=== PATIENT | female | born 1940 | race Caucasian/White ===

== ENCOUNTER 2017-05-24 13:41 | Emergency (ER) | payer OTHER, MEDICARE ==
--- NOTE | 2017-05-24 14:36 | EDPHY ---
H & P Stated Complaint: dizziness intermittant, finger lac @0100am today Time Seen by Provider: 05/24/17 14:35 - Personal History Current Tetanus Diphtheria and Acellular Pertussis (TDAP): Unsure - Medical/Surgical History Hx Asthma: No Hx Chronic Respiratory Disease: No Hx Diabetes: No Hx Cardiac Disease: No Hx Renal Disease: Yes Hx Cirrhosis: No Hx Alcoholism: No Hx HIV/AIDS: No Hx Splenectomy or Spleen Trauma: No Other PMH: htn, kidney surgey- congenital, partial right nephrectomy, stage 3 kidney disease - Social History Smoking Status: Never smoked Constitutional: Initial Vital Signs Temperature (C) 36.6 C 05/24/17 13:55 Heart Rate 86 05/24/17 13:55 Respiratory Rate 20 05/24/17 13:55 Blood Pressure 165/100 H 05/24/17 13:55 O2 Sat (%) 93 05/24/17 13:55 O2 Delivery Mode Room Air Allergies/Adverse Reactions: Sulfa (Sulfonamide Antibiotics) Allergy (Verified 05/24/17 13:55) Home Medications: Medication Instructions Recorded Losartan Potassium 05/24/17 Medical Decision Making - Diagnostics Imaging Results: Imaging Impressions Brain MRI 05/24/17 14:46 Impression: 1. Features consistent with cerebral amyloid angiopathy. 2. Moderately advanced cerebral cortical atrophy with extensive chronic microvascular ischemic gliosis and areas of old lacunar infarction. There is no evidence of an acute or subacute infarction. Findings were discussed with Beck Sutton MD at 17:07, on 05/24/2017. ED Course/Re-evaluation: CHIEF COMPLAINT: Dizziness and left finger lack HISTORY OF PRESENT ILLNESS: 76-year-old female who endorses the fact that she has some sort of brain disorder but she is not sure of the specific symptoms she should have. She has had progressive dizziness over the last several days culminating in a fall last night which broke the toilet and flooded the bathroom and her house and she cut her left index finger. She states that the dizziness seems to wax and wane but is somewhat progressive over the last couple days. She also endorses the fact that she has been urinating more than usual but does not feel like she has urinary tract infection because she has had that before. She also states she has stage 3 kidney disease but has never had any symptoms associated with it. She denies any chest pain chest pressure. She denies any headache. She denies any recent trauma. She states that she may have hydrocephalus. She denies nausea vomiting REVIEW OF SYSTEMS: A 10 point review of systems was performed and is negative with the exception of the elements mentioned in the history of present illness. PHYSICAL EXAM: HR, BP, O2 Sat, RR. Temp noted General Appearance: Alert, well hydrated, appropriate, and non-toxic appearing. Head: Atraumatic without scalp tenderness or obvious injury Eyes: Pupils equal, round, reactive to light and accommodation, EOMI, no trauma , no injection. Ears: Clear bilaterally, no perforation, normal landmarks Nose: Atraumatic, no rhinorrhea, clear. Throat: There is no erythema or exudates, no lesions, normal tonsils, mucus membranes moist. Neck: Supple, 2+ carotid upstroke, nontender, no lymphadenopathy. Respiratory: No retractions, no distress, no wheezes, and no accessory muscle use. Lungs are clear to auscultation bilaterally. Cardiovascular: Regular rate and rhythm, no murmurs, rubs, or gallops. Bilateral carotid, radial, dorsalis pedis, and posterior tibial pulses intact. Good capillary refill all extremities. Gastrointestinal: Abdomen is soft, nontender, non-distended, no masses, no rebound, no guarding, no peritoneal signs. Musculoskeletal: Normal active ROM of all extremities, atraumatic. Neurological: Alert, appropriate, and interactive. The patient has normal DTRs and non-focal cranial nerves, motor, sensory, and abnormal cerebellar exam. The patient is somewhat slow cognitively but states that that is normal for her. The only real symptom she feels subjectively is significant dizziness which is better at rest and worsening with movement. Skin: 2 cm laceration to the volar aspect of the left pointer finger. No FDS or FDP involvement. No rashes, good turgor, no nodules on palpation. Past medical history: Possibly hydrocephalus, she has been ruled out for MS, possibly latent Lyme disease Past surgical history: Noncontributory Family history: Noncontributory Social history: Single, unemployed, does not abuse tobacco drugs or alcohol DIAGNOSTICS/PROCEDURES/CRITICAL CARE TIME: Study: MRI of the: brain Indication: progressive dizziness Results: MRI scan of the brain was obtained. The results of the study are some progression of her amyloid disease but no acute findings compared to 2013 brain MRI. The study was read by the radiologist, Dr. Chauncey Salcido. I viewed the images myself on the PACS system. DIFFERENTIAL DIAGNOSIS: The differential diagnosis for the patient's dizziness included but was not limited to peripheral and central causes of vertigo, orthostatic causes including dehydration, cardiogenic and neurogenic causes, and blood loss. MEDICAL DECISION MAKING: This patient is only significant abnormal neurologic finding which is acute is balance gait abnormality and dizziness. The dizziness does seem to extinguish. This patient has nystagmus horizontally. She states that she thinks she has had that in the past also. She sees Dr. Rick Harley from Neurology and states she had an MRI about 4 years ago which did not show any MS or other findings. She thinks that dizziness can sometimes go along with what of her brain disorder she has but she is unsure. Megan Jimenez will address the left volar pointer finger. The finger is very superficial. It does not require suturing. We have cleaned appropriately and applied bacitracin and dry sterile dressing. This patient's dizziness is most likely secondary to her ongoing amyloid progressive cerebral disease. We will have her follow up with Dr. Rick Harley from Neurology. There are no obvious electrolyte abnormalities or infections to cause her dizziness. Patient advised to follow-up with Dr. Harley. She was offered admission but would like to go home. She feels she is safe to go home and I agree to this course of action. - Data Points Laboratory Results: Laboratory Results 05/24/17 15:08 05/24/17 15:08 05/24/17 05/24/17 05/24/17 15:55 15:08 15:08 WBC 5.20 10^3/uL 10^3/uL (3.80-9.50) RBC 5.26 10^6/uL 10^6/uL (4.18-5.33) Hgb 16.5 g/dL H g/dL (12.6-16.3) Hct 47.5 % H % (38.0-47.0) MCV 90.3 fL fL (81.5-99.8) MCH 31.4 pg pg (27.9-34.1) MCHC 34.7 g/dL g/dL (32.4-36.7) RDW 12.5 % % (11.5-15.2) Plt Count 323 10^3/uL 10^3/uL (150-400) MPV 9.7 fL fL (8.7-11.7) Neut % (Auto) 64.2 % % (39.3-74.2) Lymph % (Auto) 24.6 % % (15.0-45.0) [place] % (Auto) 9.4 % % (4.5-13.0) Eos % (Auto) 0.8 % % (0.6-7.6) Baso % (Auto) 0.8 % % (0.3-1.7) Nucleat RBC Rel Count 0.0 % % (0.0-0.2) Absolute Neuts (auto) 3.34 10^3/uL 10^3/uL (1.70-6.50) Absolute Lymphs (auto) 1.28 10^3/uL 10^3/uL (1.00-3.00) Absolute Monos (auto) 0.49 10^3/uL 10^3/uL (0.30-0.80) Absolute Eos (auto) 0.04 10^3/uL 10^3/uL (0.03-0.40) Absolute Basos (auto) 0.04 10^3/uL 10^3/uL (0.02-0.10) Absolute Nucleated RBC 0.00 10^3/uL 10^3/uL (0-0.01) Immature Gran % 0.2 % % (0.0-1.1) Immature Gran # 0.01 10^3/uL 10^3/uL (0.00-0.10) Sodium 142 mEq/L mEq/L (134-144) Potassium 4.3 mEq/L mEq/L (3.5-5.2) Chloride 103 mEq/L mEq/L (97-110) Carbon Dioxide 25 mEq/l mEq/l (22-31) Anion Gap 14 mEq/L mEq/L (8-16) BUN 21 mg/dL mg/dL (7-23) Creatinine 1.1 mg/dL H mg/dL (0.6-1.0) Estimated GFR 48 Glucose 93 mg/dL mg/dL (70-100) Calcium 11.3 mg/dL H mg/dL (8.5-10.4) Phosphorus 4.0 mg/dL mg/dL (2.5-4.5) Magnesium 2.5 mg/dL H mg/dL (1.6-2.3) Urine Color YELLOW Urine Appearance CLEAR Urine pH 5.0 (5.0-7.5) Ur Specific [place] 1.013 (1.002-1.030) Urine Protein NEGATIVE (NEGATIVE) Urine Ketones NEGATIVE (NEGATIVE) Urine Blood 1+ H (NEGATIVE) Urine Nitrate NEGATIVE (NEGATIVE) Urine Bilirubin NEGATIVE (NEGATIVE) Urine Urobilinogen NEGATIVE EU EU (0.2-1.0) Ur Leukocyte Esterase NEGATIVE (NEGATIVE) Urine RBC 5-10 /hpf H /hpf (0-3) Urine WBC 1-3 /hpf /hpf (0-3) Ur Epithelial Cells TRACE /lpf /lpf (NONE-1+) Urine Mucus TRACE /lpf /lpf (NONE-1+) Urine Glucose NEGATIVE (NEGATIVE) Departure - Departure Disposition: Home, Routine, Self-Care Clinical Impression: Dizziness Condition: Good Instructions: Dizziness (ED) Additional Instructions: 1. Follow-up with Dr. Harley for unimproved symptoms in 1-2 days. 2. Return to the ED for worsening of condition. Referrals: Robert Wolf [Primary Care Provider] - As per Instructions Rick Harley MD [Medical Doctor] - As per Instructions
[2017-05-24 15:20] LABS: % IMMATURE GRANULYOCYTES 0.2 % (0.0-1.1); ABSOLUTE IMMATURE GRANULOCYTES 0.01 10^3/uL (0.00-0.10); ADD DIFF? NO; ADD MORPH? NO; ADD SCAN? NO; ATYPICAL LYMPHOCYTE FLAG 0 (0-99); FRAGMENT RBC FLAG 0 (0-99); HEMATOCRIT 47.5 % (38.0-47.0); HEMOGLOBIN 16.5 g/dL (12.6-16.3); LEFT SHIFT FLG 0 (0-99); LIPEMIA HEMOLYSIS FLAG 90 (0-99); MEAN CELL HEMOGLOBIN 31.4 pg (27.9-34.1); MEAN CELL HEMOGLOBIN CONCENTR. 34.7 g/dL (32.4-36.7); MEAN CELL VOLUME 90.3 fL (81.5-99.8); MEAN PLATELET VOLUME 9.7 fL (8.7-11.7); PLATELET CLUMPS FLAG 0 (0-99); PLATELET COUNT 323 10^3/uL (150-400); RED BLOOD CELL COUNT 5.26 10^6/uL (4.18-5.33); RED CELL DISTRIBUTION WIDTH 12.5 % (11.5-15.2)
--- NOTE | 2017-05-24 15:21 | CPEKG ---
Heart Rate: 61 RR Interval: 984 P-R Interval: 240 QRSD Interval: 92 QT Interval: 416 QTC Interval: 419 P [place]: 41 QRS [place]: 23 T Wave [place]: 29 EKG Severity - ABNORMAL ECG - EKG Impression: SINUS RHYTHM EKG Impression: FIRST DEGREE AV BLOCK EKG Impression: CONSIDER ANTERIOR INFARCT Electronically Signed By: Beck Sutton 24-May-2017 21:55:13
[2017-05-24 15:48] LABS: ANION GAP 14 mEq/L (8-16); CALCIUM 11.3 mg/dL (8.5-10.4); CARBON DIOXIDE 25 mEq/l (22-31); CHLORIDE 103 mEq/L (97-110); CREATININE 1.1 mg/dL (0.6-1.0); GLOMERULAR FILTRATION RATE 48; GLUCOSE 93 mg/dL (70-100); MAGNESIUM 2.5 mg/dL (1.6-2.3); POTASSIUM 4.3 mEq/L (3.5-5.2); SODIUM 142 mEq/L (134-144)
[2017-05-24 16:06] LABS: COLOR YELLOW; LEUKOCYTE ESTERASE,URINE NEGATIVE (NEGATIVE); NITRITE,URINE NEGATIVE (NEGATIVE)
[2017-05-24 16:09] LABS: MUCUS TRACE /lpf (NONE-1+)
[2017-05-24 18:22] VITALS: BP 183/105; PULSE 77; RESP 18; TEMP 97.7; O2SAT 97
== END 2017-05-24 18:42 | disposition home or self-care (01) ==
DX: R42 Dizziness and giddiness (principal); I12.9 Hypertensive chronic kidney disease with stage 1 through stage 4 chronic kidney disease, or unspecified chronic kidney disease; N18.3 Chronic kidney disease, stage 3 (moderate); W01.118A Fall on same level from slipping, tripping and stumbling with subsequent striking against other sharp object, initial encounter; Y92.009 Unspecified place in unspecified non-institutional (private) residence as the place of occurrence of the external cause

== ENCOUNTER → 2017-06-26 | Outpatient (CLI) | payer OTHER, MEDICARE ==
--- NOTE | 2017-06-27 07:45 | CPEEG ---
[f rep st] ELECTROENCEPHALOGRAM FOUR HOUR VIDEO EEG DATE OF STUDY: 06/26/2017 INTERPRETATION: This 4-hour video EEG recording is essentially normal. There were no definite epile ptogenic abnormalities present in the awake or sleep recordings. The patient did not have any clinic al events during the video EEG monitoring session. REPORT: This 4-hour video EEG contains 9-10 Hz alpha activity over the posterior head regions. Ther e was no abnormal activation at rest, during photic stimulation or hyperventilation. The patient bec toni drowsy and fell asleep during the study. During drowsiness and light sleep, there was occasional sharply contoured wave forms of uncertain clinical significance over the left temporal head regions. There was no definite abnormal activation during drowsiness, sleep, or during times of arousal. Th e patient did not have any clinical events during the video EEG monitoring session. /[id number]/MODL
== END ==
LOC: FCPNEURO 07:47
PROVIDERS: ATTEND Psychiatry & Neurology Neurology
DX: E85.4 Organ-limited amyloidosis (principal); I86.0 Sublingual varices; I67.3 Progressive vascular leukoencephalopathy

== ENCOUNTER 2017-06-30 14:35 | Inpatient (IN) | payer OTHER, MEDICARE ==
--- NOTE | 2017-06-30 14:40 | EDPHY ---
H & P Constitutional: Initial Vital Signs Temperature (C) 36.8 C 06/30/17 14:48 Heart Rate 85 06/30/17 14:48 Respiratory Rate 16 06/30/17 14:48 Blood Pressure 172/104 H 06/30/17 14:48 O2 Sat (%) 99 06/30/17 14:48 O2 Delivery Mode Room Air Allergies/Adverse Reactions: Sulfa (Sulfonamide Antibiotics) Allergy (Verified 05/24/17 13:55) Home Medications: Medication Instructions Recorded Herbals/Supplements -Info Only 1 ea PO DAILY 06/30/17 Losartan Potassium [Cozaar] 100 mg PO HS 06/30/17 Medical Decision Making - Diagnostics Imaging Results: Imaging Impressions Head CT 06/30/17 14:39 Impression: 1. No acute intracranial hemorrhage or evidence of acute cortical ischemia. 2. Atrophy and white matter disease similar to May 2017. Findings discussed with Emergency Department physician, Beck Sutton MD, on 06/30/2017, 14:50. Head CTA 06/30/17 14:39 Impression: 1. Possible occlusion of a left M3 branch in the middle cerebral artery. If clinical suspicion warrants, consider MRI. 2. Subtle contour irregularity of the middle cerebral arteries, most likely related to artifact or less likely vasculitis. 3. Additional findings as above. Stenoses are calculated using [place] Symptomatic Carotid Endarterectomy Trial (NASCET) criteria. Findings discussed with Beck Sutton MD, on 06/30/2017 at 15:49. Neck CTA 06/30/17 14:39 Impression: 1. Possible occlusion of a left M3 branch in the middle cerebral artery. If clinical suspicion warrants, consider MRI. 2. Subtle contour irregularity of the middle cerebral arteries, most likely related to artifact or less likely vasculitis. 3. Additional findings as above. Stenoses are calculated using [place] Symptomatic Carotid Endarterectomy Trial (NASCET) criteria. Findings discussed with Beck Sutton MD, on 06/30/2017 at 15:49. Imaging: Discussed imaging studies w/ call center dispatcher Radiologist, I viewed and interpreted images myself ED Course/Re-evaluation: CHIEF COMPLAINT: Stroke Alert, right-sided weakness HISTORY OF PRESENT ILLNESS: The patient is a 76 y/o female arriving via EMS as a Stroke Alert due to acute onset right-sided weakness at 13:40, 1 hour ago, that has since improved; however, she continues to have persisting cognitive difficulty and feels like she is drifting to the left. Her prior records show a history of cerebral amyloidosis and old lacunar infarct seen on brain MRI from 05/24/17. She is alert and oriented, but continues to have right leg weakness during initial assessment. No anticoagulant use. REVIEW OF SYSTEMS: A 10 point review of systems was performed and is negative with the exception of the elements mentioned in the history of present illness. PHYSICAL EXAM: HR, BP, O2 Sat, RR. Temp noted General Appearance: Alert, well hydrated, appropriate, and non-toxic appearing. Head: Atraumatic without scalp tenderness or obvious injury Eyes: Pupils equal, round, reactive to light and accommodation, EOMI, no trauma , no injection. Ears: Clear bilaterally, no perforation, normal landmarks Nose: Atraumatic, no rhinorrhea, clear. Throat: Mucus membranes moist. Neck: Supple Respiratory: No retractions, no distress, no wheezes, and no accessory muscle use. Lungs are clear to auscultation bilaterally. Cardiovascular: Regular rate and rhythm, no murmurs, rubs, or gallops. Good capillary refill all extremities. Gastrointestinal: Abdomen is soft, non-tender, non-distended, no masses, no rebound, no guarding, no peritoneal signs. Musculoskeletal: Normal active ROM of all extremities, atraumatic. Neurological: Alert, appropriate, and interactive. The patient has non-focal cranial nerves, motor, sensory, and cerebellar exam with exception of right leg weakness. Skin: No rashes, good turgor, no nodules on palpation. PAST MEDICAL HISTORY: Hypertension, stage 3 kidney disease, cerebral amyloidosis PAST SURGICAL HISTORY: Partial nephrectomy SOCIAL HISTORY: Nonsmoker Prior medical records reviewed including ED visit 05/24/17 for dizziness. Brain MRI showed amyloid deposits and old lacunar infarct. DIAGNOSTICS/PROCEDURES/CRITICAL CARE TIME: Head CT: No acute ischemia. Similar atrophy to 05/24/17. The 12 lead EKG was interpreted by myself. Sinus rhythm with 1st degree AV block. See hard copy and/or "tracemaster" electronic copy for interpretation. Head and neck CTA: left M3 branch of MCA occlusion, amyloid deposits as prior MRI. Critical care time spent by me, Dr. Sutton, exclusively with this patient was 45 minutes, exclusive of PA time and exclusive of procedures. The organ system at risk was brain. Time spent in urgent neurologic assessment, serial assessments of patient, discussion with patient and family, consideration of interventions, review of CT scans, and consultation with neurosurgery and trauma surgery. DIFFERENTIAL DIAGNOSIS: The differential diagnosis for the patient's neurologic deficits included but was not limited to peripheral causes, central causes including CVA, TIA, electrolyte abnormalities and dehydration, cardiogenic causes, atypical causes like migraine syndrome. MEDICAL DECISION MAKIN: Met EMS upon arrival and took report. This is a 76 y/o female with history of recently diagnosed cerebral amyloidosis who presents with a 1-hour history of acute onset right-sided weakness and cognitive difficulties that have since improved. She continues to have right leg weakness on exam and feels like she is listing to the left. Prehospital BGL 114. She is also hypertensive above 170 systolic. Plan for standard stroke work-up including IV, emergent CT, labs, EKG. 1438: Patient sent directly to CT. 1450: Consulted with Dr. Moore, [place] neurologist. Since her symptoms have resolved, there is no indication for TPA currently. 1550: CTAs show occluded left M3 branch of MCA. May be too small for surgical intervention. Neurology paged for consult. 1610: Consulted with Dr. Moore again. He does not recommend surgical intervention as patient's symptoms have completely resolved at this point and this is a small vessel. TPA not indicated due to amyloid deposits leading to increased risk of bleeding. Spoke with hospitalist service. Dr. Engle accepts admission. BP is 199/110 - 20mg IV Labetalol ordered. 1640: Reassessed patient. She has a completely normal neurologic exam at this time. She states she has an ENT appointment scheduled for tomorrow with Dr. Copeland to follow up on her dizziness from May. Hospitalist updated. - Data Points Laboratory Results: Laboratory Results 06/30/17 14:50 06/30/17 14:50 06/30/17 06/30/17 06/30/17 14:54 14:50 14:50 WBC RBC Hgb POC Hgb 15.0 gm/dL gm/dL (12.6-16.3) Hct POC Hct 44 % % (38-47) MCV MCH MCHC RDW Plt Count MPV Neut % (Auto) Lymph % (Auto) [place] % (Auto) Eos % (Auto) Baso % (Auto) Nucleat RBC Rel Count Absolute Neuts (auto) Absolute Lymphs (auto) Absolute Monos (auto) Absolute Eos (auto) Absolute Basos (auto) Absolute Nucleated RBC Immature Gran % Immature Gran # PT 13.1 SEC SEC (12.0-15.0) INR 0.97 (0.83-1.16) APTT 30.3 SEC SEC (23.0-38.0) POC Sodium 142 mEq/L mEq/L (134-144) Sodium 142 mEq/L mEq/L (134-144) POC Potassium 4.2 mEq/L mEq/L (3.3-5.0) Potassium 4.5 mEq/L mEq/L (3.5-5.2) POC Chloride 106 mEq/L mEq/L (97-110) Chloride 107 mEq/L mEq/L (97-110) Carbon Dioxide 24 mEq/l mEq/l (22-31) Anion Gap 11 mEq/L mEq/L (8-16) POC BUN 29 mg/dL H mg/dL (7-23) BUN 26 mg/dL H mg/dL (7-23) Creatinine 1.2 mg/dL H mg/dL (0.6-1.0) POC Creatinine 1.2 mg/dL H mg/dL (0.6-1.0) Estimated GFR 44 Glucose 101 mg/dL H mg/dL (70-100) POC Glucose 97 mg/dL mg/dL (70-100) Calcium 10.7 mg/dL H mg/dL (8.5-10.4) Phosphorus 3.7 mg/dL mg/dL (2.5-4.5) Troponin I < 0.012 ng/mL ng/mL (0.000-0.034) 06/30/17 14:50 WBC 6.02 10^3/uL 10^3/uL (3.80-9.50) RBC 4.92 10^6/uL 10^6/uL (4.18-5.33) Hgb 15.4 g/dL g/dL (12.6-16.3) POC Hgb Hct 44.7 % % (38.0-47.0) POC Hct MCV 90.9 fL fL (81.5-99.8) MCH 31.3 pg pg (27.9-34.1) MCHC 34.5 g/dL g/dL (32.4-36.7) RDW 12.4 % % (11.5-15.2) Plt Count 298 10^3/uL 10^3/uL (150-400) MPV 9.2 fL fL (8.7-11.7) Neut % (Auto) 66.0 % % (39.3-74.2) Lymph % (Auto) 20.6 % % (15.0-45.0) [place] % (Auto) 11.3 % % (4.5-13.0) Eos % (Auto) 1.2 % % (0.6-7.6) Baso % (Auto) 0.7 % % (0.3-1.7) Nucleat RBC Rel Count 0.0 % % (0.0-0.2) Absolute Neuts (auto) 3.98 10^3/uL 10^3/uL (1.70-6.50) Absolute Lymphs (auto) 1.24 10^3/uL 10^3/uL (1.00-3.00) Absolute Monos (auto) 0.68 10^3/uL 10^3/uL (0.30-0.80) Absolute Eos (auto) 0.07 10^3/uL 10^3/uL (0.03-0.40) Absolute Basos (auto) 0.04 10^3/uL 10^3/uL (0.02-0.10) Absolute Nucleated RBC 0.00 10^3/uL 10^3/uL (0-0.01) Immature Gran % 0.2 % % (0.0-1.1) Immature Gran # 0.01 10^3/uL 10^3/uL (0.00-0.10) PT INR APTT POC Sodium Sodium POC Potassium Potassium POC Chloride Chloride Carbon Dioxide Anion Gap POC BUN BUN Creatinine POC Creatinine Estimated GFR Glucose POC Glucose Calcium Phosphorus Troponin I Medications Given: Discontinued Medications Labetalol HCl (Trandate Injection) 20 mg IVP EDNOW ONE Stop: 06/30/17 16:20 Last Admin: 06/30/17 16:28 Dose: 20 mg Point of Care Test Results: 06/30/17 14:54 POC Sodium 142 POC Potassium 4.2 POC Chloride 106 POC BUN 29 H POC Creatinine 1.2 H POC Glucose 97 Departure - Departure Disposition: [facility] Inpatient Acute Clinical Impression: Cerebral amyloid angiopathy CVA (cerebral vascular accident) Qualifiers: CVA mechanism: occlusion Precerebral and cerebral artery: middle cerebral artery Laterality of affected vessel: left Qualified Code(s): I63.512 - Cerebral infarction due to unspecified occlusion or stenosis of left middle cerebral artery Condition: Fair Report Scribed for: Beck Sutton Report Scribed by: Toya Whitten Date of Report: 06/30/17 Time of Report: 16:39
--- NOTE | 2017-06-30 14:56 | CPEKG ---
Heart Rate: 70 RR Interval: 857 P-R Interval: 232 QRSD Interval: 88 QT Interval: 404 QTC Interval: 436 P [place]: 64 QRS [place]: 27 T Wave [place]: 30 EKG Severity - ABNORMAL ECG - EKG Impression: SINUS RHYTHM EKG Impression: FIRST DEGREE AV BLOCK EKG Impression: BORDERLINE R WAVE PROGRESSION, ANTERIOR LEADS Electronically Signed By: Beck Sutton 30-Jun-2017 22:46:41
[2017-06-30] MEDS ORDERED: IOPAMIDOL (ISOVUE 370) 100 ML BTL IV ONE ×2 (14:57→15:02)
[2017-06-30 14:59] LABS: % IMMATURE GRANULYOCYTES 0.2 % (0.0-1.1); ABSOLUTE IMMATURE GRANULOCYTES 0.01 10^3/uL (0.00-0.10); ADD DIFF? NO; ADD MORPH? NO; ADD SCAN? NO; ATYPICAL LYMPHOCYTE FLAG 0 (0-99); FRAGMENT RBC FLAG 0 (0-99); HEMATOCRIT 44.7 % (38.0-47.0); HEMOGLOBIN 15.4 g/dL (12.6-16.3); LEFT SHIFT FLG 0 (0-99); LIPEMIA HEMOLYSIS FLAG 90 (0-99); MEAN CELL HEMOGLOBIN 31.3 pg (27.9-34.1); MEAN CELL HEMOGLOBIN CONCENTR. 34.5 g/dL (32.4-36.7); MEAN CELL VOLUME 90.9 fL (81.5-99.8); MEAN PLATELET VOLUME 9.2 fL (8.7-11.7); PLATELET CLUMPS FLAG 10 (0-99); PLATELET COUNT 298 10^3/uL (150-400); RED BLOOD CELL COUNT 4.92 10^6/uL (4.18-5.33); RED CELL DISTRIBUTION WIDTH 12.4 % (11.5-15.2)
[2017-06-30 15:11] LABS: APTT 30.3 SEC (23.0-38.0); INR 0.97 (0.83-1.16); PROTIME(PATIENT) 13.1 SEC (12.0-15.0)
[2017-06-30 15:12] LABS: ANION GAP 11 mEq/L (8-16); CALCIUM 10.7 mg/dL (8.5-10.4); CARBON DIOXIDE 24 mEq/l (22-31); CHLORIDE 107 mEq/L (97-110); CREATININE 1.2 mg/dL (0.6-1.0); GLOMERULAR FILTRATION RATE 44; GLUCOSE 101 mg/dL (70-100); POTASSIUM 4.5 mEq/L (3.5-5.2); SODIUM 142 mEq/L (134-144)
[2017-06-30 15:22] LABS: TROPONIN I < 0.012 ng/mL (0.000-0.034)
[2017-06-30] MEDS ORDERED: LABETALOL HCL 5 MG/ML 20 ML MDV IVP ONE (16:19)
[2017-06-30] MEDS ORDERED: ACETAMINOPHEN 500 MG TAB PO PRN (18:03)
[2017-06-30] MEDS ORDERED: ONDANSETRON DISINTEGRATING 4 MG TAB PO PRN (18:03)
[2017-06-30] MEDS ORDERED: ONDANSETRON 4 MG/2 ML VIAL IVP PRN (18:03)
[2017-06-30] MEDS ORDERED: LABETALOL HCL 5 MG/ML 20 ML MDV IVP PRN (18:06)
[2017-06-30] MEDS ORDERED: 1/2 NS 1,000 ML IV SCH (18:15)
--- NOTE | 2017-06-30 18:26 | ASMTCMCOM ---
CM Note CM Note Notes: Patient presented to ED via EMS as Stroke Alert after having acute onset of right sided weakness. Patient has a history of cerebral amyloidosis and old lacunar infarct seen on MRI from 05/24/17. Patient has been followed by neurologist Dr. Harley. Patient has an appointment tomorrow with her ENT to follow-up from recent visit for dizziness/gait issues. Patient's CT showed possible occlusion of middle cerebral artery. Patients symptoms have resolved, surgery is not indicated at the time of neuro consult in the ED. Som with [employer] [facility], texted patient's son Ashish Loco ([phone]), who is hearing impaired. He arrived shortly thereafter. Exact DC needs unknown. CM to follow. Date Signed: 06/30/2017 06:26 PM Electronically Signed By:Park Francisco RN
--- NOTE | 2017-06-30 18:50 | GHP ---
[f rep st] HISTORY AND PHYSICAL DATE OF ADMISSION: 06/30/2017 CHIEF COMPLAINT: Stroke alert. HISTORY OF PRESENT ILLNESS: This is a 76-year-old female, with a history of amyloid angiopathy who i s brought in by EMS as a stroke alert. She was working with PT, OT today when her physical therapist thought that she noticed some facial droop. The patient also explains that she felt somewhat confus ed at that time. There was some concern that she may be drifting to the right as well, though she do es not recall this. The patient also describes some word-finding difficulties. Currently, the sympt oms have resolved, though she says she may be feeling slightly confused again. She had felt essentia lly back to normal, however, when I first saw her. Teleneurology had been consulted and felt that tP A was not appropriate. PAST MEDICAL/SURGICAL HISTORY: 1. Amyloid angiopathy causing cognitive deficits, being followed by Dr. Harley. 2. Hypertension. 3. Microscopic colitis. MEDICATIONS: Please see medication reconciliation. ALLERGIES: Sulfa. FAMILY HISTORY: Her brother had a stroke and her mom had a stroke. SOCIAL HISTORY: She does not drink or smoke. She lives by herself. REVIEW OF SYSTEMS: A 10-point review of systems is conducted and is negative except per HPI. PHYSICAL EXAM: VITAL SIGNS: Blood pressure 199/104, heart rate 78, respiratory rate 17, saturating 95% on room air. GENERAL: The patient is a pleasant female who appears comfortable, in no acute dis tress. HEENT: Normocephalic, atraumatic. CARDIOVASCULAR: Regular rate and rhythm. No murmurs, ru bs, or gallops. PULMONARY: Lungs clear to auscultation bilaterally. ABDOMEN: Soft, nontender, non distended. SKIN: No rash. : No Gardner. NEUROLOGIC: Alert and oriented x3. She is able to repe at a simple sentence. She has mild right-sided pronator drift. Cranial nerves 2-12 are intact. Mot or is 5/5 in both the upper and lower extremities. Sensation is 5/5 in the upper and lower extremiti es. PSYCHIATRIC: Normal mood and affect. LABS: CBC is normal. INR is normal. Creatinine is 1.2. Troponin is negative. DATA: 1. I discussed with Dr. Sutton. 2. I reviewed her head and neck CT angiograms. These show possible M3 occlusion with subtle irregul arity of the middle cerebral arteries. 3. Head CT shows stable white matter disease. 4. EKG shows sinus rhythm, first-degree AV block. No acute ischemic changes. 5. Chest x-ray, which I personally viewed and interpreted, shows nothing acute. IMPRESSION AND PLAN: A 76-year-old female with a stroke. 1. Acute stroke, left-sided M3 occlusion, with aphasia, right-sided deficits which have predominantl y resolved. Not a tPA candidate, per Neurology, given resolution of symptoms as well as high risk fo r tPA given amyloid angiopathy. She is quite hypertensive, even after receiving labetalol. Will adm it to the step-down unit. Allow permissive hypertension to 220/140. Otherwise, IV labetalol. Check echocardiogram, monitor on telemetry, check lipids, and A1c. Neurology consult. She is resistant t o taking an aspirin given her microscopic colitis. I have ordered Plavix for her to start tomorrow m ford. 2. Amyloid angiopathy. No acute interventions needed for this. She is followed by Dr. Harley. This i s causing some cognitive deficits. 3. Hypertension. Hold her losartan for now, she has IV medications ordered for blood pressures 220/ 140. Would restart her losartan tomorrow. 4. Mild creatinine elevation. Will give her IV fluids and recheck in the morning. 5. Code status. She would like to be do not resuscitate. She clearly understands what this means. Her son is present when I am having this conversation. 6. Venous thromboembolism risk. She is high risk, would discuss the safety of anticoagulation in th e setting of amyloid with Neurology tomorrow. I have ordered SCDs. /[id number]/MODL
[2017-06-30 19:28] LABS: HEMOGLOBIN A1C 5.6 % (4.0-6.0)
[2017-06-30] MEDS ORDERED: NON-FORMULARY NEW DRUG (Losartan Potassium [Cozaar] 100 MG) PO SCH (21:00)
[2017-07-01 06:23] LABS: % IMMATURE GRANULYOCYTES 0.2 % (0.0-1.1); ABSOLUTE IMMATURE GRANULOCYTES 0.01 10^3/uL (0.00-0.10); ADD DIFF? NO; ADD MORPH? NO; ADD SCAN? NO; ATYPICAL LYMPHOCYTE FLAG 0 (0-99); FRAGMENT RBC FLAG 0 (0-99); HEMATOCRIT 39.4 % (38.0-47.0); HEMOGLOBIN 13.5 g/dL (12.6-16.3); LEFT SHIFT FLG 0 (0-99); LIPEMIA HEMOLYSIS FLAG 90 (0-99); MEAN CELL HEMOGLOBIN 30.9 pg (27.9-34.1); MEAN CELL HEMOGLOBIN CONCENTR. 34.3 g/dL (32.4-36.7); MEAN CELL VOLUME 90.2 fL (81.5-99.8); MEAN PLATELET VOLUME 9.2 fL (8.7-11.7); PLATELET CLUMPS FLAG 0 (0-99); PLATELET COUNT 274 10^3/uL (150-400); RED BLOOD CELL COUNT 4.37 10^6/uL (4.18-5.33); RED CELL DISTRIBUTION WIDTH 12.5 % (11.5-15.2)
[2017-07-01 06:51] LABS: ALANINE AMINOTRANSFERASE 22 IU/L (9-52); ALBUMIN 3.2 g/dL (3.5-5.0); ALKALINE PHOSPHATASE 40 IU/L (38-126); ANION GAP 9 mEq/L (8-16); ASPARTATE AMINOTRANSFERASE 16 IU/L (14-46); BILIRUBIN,TOTAL 0.5 mg/dL (0.1-1.4); CALCIUM 9.8 mg/dL (8.5-10.4); CARBON DIOXIDE 25 mEq/l (22-31); CHLORIDE 109 mEq/L (97-110); CHOLESTEROL 200 mg/dL (140-220); CHOLESTEROL/HDL RATIO 2.25 RATIO (1.00-4.44); CREATININE 1.1 mg/dL (0.6-1.0); GLOMERULAR FILTRATION RATE 48; GLUCOSE 90 mg/dL (70-100); HIGH DENSITY LIPOPROTEIN 89 mg/dL (40-85); LOW DENSITY LIPOPROTEIN 98 mg/dL (80-100); NON-HIGH DENSITY LIPOPROTEIN 111 mg/dL (90-129); POTASSIUM 4.1 mEq/L (3.5-5.2); SODIUM 143 mEq/L (134-144); TOTAL PROTEIN 5.5 g/dL (6.3-8.2); TRIGLYCERIDE 69 mg/dL (35-135); VERY LOW DENSITY LIPOPROTEINS 13 mg/dL (8-25)
[2017-07-01] MEDS: CLOPIDOGREL BISULFATE 75 MG TAB PO SCH (09:06)
--- NOTE | 2017-07-01 10:51 | ECHO ---
[email or web address] [address] [address] Main: [phone] Fax: Transthoracic Echocardiogram Name: ANDREA DAMIAN MR#: [id number] Study Date: 07/01/2017 Study Time: 08:25 AM Date of : 1940 Age: 76 year(s) Height: 172.7 cm (68 in.) Weight: 78.47 kg (173 lb.) BSA: 1.92 m2 Gender: Female Examination: Echo Indication: Cerebrovascular: prior CVA Image Quality: Contrast: Requested by: Zoran Engle BP: 135 mmHg/80 mmHg Heart Rate: Rhythm: Normal sinus rhythm Indication: Cerebrovascular: prior CVA Procedure Staff Agriculture Extension Specialist: Tye Solorzano Reading Physician: Jose Miguel Welch Requesting Provider: Conclusions: no pericardial effusion. Concentric left ventricular hypertrophy. Normal systolic function with ejection fraction of 71%. Diastolic dysfunction by Doppler. No significant valvular abnormalities by Doppler 2 dimensional study. Measurements: Chambers Valvular Assessment AV/MV Valvular Assessment TV/PV Normal Normal Normal Name Value Range Name Value Range Name Value Range Ao Kari (MM): 2.9 cm (2.2 cm-3.7 AV Vmax: 1.15 m/s (1 m/s-1.7 TR Vmax: 2.10 mm/s ( - ) cm) m/s) TR PGmax: 18 mmHg ( - ) IVSd (2D): 1.4 cm (0.6 cm-1.1 AV maxP mmHg ( - ) syst. PAP: 23 mmHg ( - ) cm) LVOT Vmax: 0.94 m/s (0.7 m/s-1.1 PV Vmax: 0.64 m/s (0.6 m/s-0.9 LVDd (2D): 3.7 cm (3.9 cm-5.3 m/s) m/s) cm) MV E Vmax: 0.69 m/s ( - ) PV PGmax: 2 mmHg ( - ) LVDs (2D): 2.2 cm (2.1 cm-4 MV A Vmax: 0.85 m/s ( - ) cm) MV E/A: 0.81 ( - ) LVPWd (2D): 1.3 cm ( - ) LVEF (2D): 71 (>=54 %) Continued Measurements: Valvular Assessment AV/MV Valvular Assessment TV/PV Name Value Name Value MV E/E' Septal: 9.80 CVP (est.): 5 mmHg MV E/E' Lateral: 12.20 Findings: Left Ventricle: Normal size left ventricle. Mild concentric LV hypertrophy. Normal global systolic LV function. EF is Patient: ANDREA DAMIAN Study Date: 07/01/2017 Page 1 of 2 08:25 AM 71 %. No regional wall motion abnormality. Diastolic dysfunction is present. . Right Ventricle: Normal size right ventricle. Left Atrium: The left atrium is normal in size. Right Atrium: The right atrium is normal in size. Mitral Valve: The mitral valve is normal in appearance and function. There is no mitral valve regurgitation. Aortic Valve: The aortic valve is normal in appearance and function. The aortic valve is tri-leaflet. There is no aortic valve regurgitation. Tricuspid Valve: The tricuspid valve is normal in appearance and function. Pulmonic Valve: The pulmonic valve is normal in appearance and function. Aorta: The aorta is normal. Pericardium: No pericardial effusion. (No Signature Object) Patient: ANDREA DAMIAN Study Date: 07/01/2017 Page 2 of 2 08:25 AM [id number]
[2017-07-01] MEDS ORDERED: hydrALAZINE 20 MG/ML VIAL IVP PRN (14:17)
[2017-07-01] MEDS: ATORVASTATIN CALCIUM 40 MG TAB PO SCH (14:56)
--- NOTE | 2017-07-01 16:50 | GCON ---
[f rep st] CONSULTATION NEUROLOGY CONSULTATION DATE OF CONSULTATION: 07/01/2017 REFERRING PHYSICIAN: Zoran Engle MD CHIEF COMPLAINT: Stroke alert followup. HISTORY OF PRESENT ILLNESS: The patient is a very pleasant 76-year-old lady, whom I follow as an outpatient for cognitive problems and balance problems that are related to her underlying cerebrovascular disease. Specifically, she has significant evidence of punctate, multifocal microhemorrhages consistent with cerebral amyloid angiopathy, and she has significant subcortical microvascular white matter changes consistent with her history of hypertension. She understands that both of these conditions likely are playing a role in her cognitive symptoms and any motor symptoms. We had discussed the possibility of starting an aspirin with the understanding it could increase her risk for lobar hemorrhage from the amyloid angiopathy viewpoint. She declined aspirin at her last visit. Yesterday, apparently she was working with PT and OT and a therapist thought there was some facial droop and that the patient appeared confused. However, the patient denies having any symptoms. She did not notice any symptoms herself , but in any case, she was brought to the ED and a stroke alert was initiated. Teleneurology did not feel she was a tPA candidate. She was admitted for further evaluation. She recently had an EEG which was essentially normal. There were sharply contoured wave forms of uncertain clinical significance over the left temporal head region. No other clinical history of seizures. She was started on Plavix 75 mg daily. CTA results below. For past medical history, medications, allergies, family history, social history , see Dr. Engle's note. REVIEW OF SYSTEMS: A 10-point review of systems was done and only pertinent in the HPI. PHYSICAL EXAM: VITAL SIGNS: Today, blood pressure was 130s over 70s. Temperature 36.8, heart rate 60s. GENERAL: Patient is awake and alert. Some psychomotor slowing, but no aphasia. NEUROLOGIC: Cranial nerve exam is normal 2 through 7. Motor exam was normal strength throughout. No focal weakness. Sensory exam normal to light touch in all 4 extremities. seventy total minutes floor time; included reviewing outpatient / inpatient records, imaging and direct counseling with the patient. IMPRESSION AND PLAN: 1. Transient neurologic symptoms. 2. Hypertensive white matter disease. 3. Cerebral amyloid angiopathy. 4. Hypertension. When the patient initially came to the ER, she had highly elevated blood pressures with a couple of readings above 200 in the systolics. This may have been a presentation of hypertensive encephalopathy. Not clear. Another possibility is a focal seizure. However, there were not overt semiologic features to suggest seizure at this time. Certainly, a small stroke is on the differential diagnosis as well. The CT angiography of the head was interpreted as having some irregularity or possible small thrombus in the left M3 branch of the MCA. I had a long discussion with the patient this morning regarding the differential diagnosis and next steps. I think we should proceed with MRI brain to see if she has had an acute infarct on diffusion-weighted images and, if present, in the left M3 distribution. If she has had an infarct, then I will again offer her to continue Plavix 75 mg daily for stroke prophylaxis. She understands the significant risk of hemorrhage with its associated morbidity /mortality with any antithrombotic therapy based on the burden of microhemorrhages she has. Therefore, we will touch base again with the patient after the MRI is complete to define an outpatient plan. This will include following up with me in any case. If her MRI is negative for stroke, she will then again decide for Plavix dauily for a transient ischemic attack or not -- and follow up with me as an outpatient and we could consider a small dose of seizure medication at that time as well for possible seizure. Thank you for this consultation. /[id number]/MODL MTDD
--- NOTE | 2017-07-01 17:29 | ASMTCMCOM ---
CM Note CM Note Notes: Son who is hearing impaired reported to RN that when he went to feed his mother's cats found her house unlivable. Patient reports to me that she gets very overwhelmed at the tasks she faces at home. She was very familiar with community resources and had made many calls. She wants to stay in her bi-level home as long as possible and not wanting to spend money-wants to save for her son. She was given the SR Res Book. [facility] as well as the [facility] that could maybe help with less costs. Patient would benefit by having a HC COMMERCIAL CONSTRUCTION PROJECT MANAGER. She would like HC services. Date Signed: 07/01/2017 05:29 PM Electronically Signed By:Fang Mayer LCSW
--- NOTE | 2017-07-01 18:27 | HOSPPROG ---
Hospitalist Progress Note Assessment/Plan: * TIA - may be hypertensive in origin -unable to take ASA due to GI side effects -Plavix high risk, also high risk to not take it -Dr. Harley discussed risks and benefits with patient -she desires continuation of plavix * Cerebral Amyloid Angiopathy -multiple punctate multifocal microhemorrhages -increased risk with anti-platelet tx * Vascular dementia -patient has developed hoarding -cog eval with ST * HTN emergency -BP better - restart PO losartan -continue to monitor inpatient -may need to add second agent * Hyperlipidemia - goal LDL < 70 -start statin * Possible thrombus M3 branch MCA artery -d/w Dr. Harley - he thinks might be artifact * Microscopic colitis d/w case management - HH with SW recommended at discharge Subjective: No more neuro changes Objective: Vital Signs Temp Pulse Resp BP Pulse Ox 36.6 C 75 19 138/78 H 97 07/01/17 16:00 07/01/17 16:00 07/01/17 16:00 07/01/17 16:00 07/01/17 16:00 06/30/17 07/01/17 07/02/17 05:59 05:59 05:59 Intake Total 1604 Balance 1604 PT 13.1 SEC (12.0-15.0) 06/30/17 14:50 INR 0.97 (0.83-1.16) 06/30/17 14:50 d/w Dr. Harley - no right answer regarding antiplatelet - he discussed risk/ benefit with patient and allowing her to decide MRI brain - no acute CVA ECHO - normal Laboratory Tests 07/01/17 06:15 Creatinine 1.1 H Cholesterol 200 LDL Cholesterol, Calc 98 - Physical Exam Constitutional: no apparent distress, appears nourished, not in pain Cardiovascular: regular rate and rhythym, no murmur, rub, or gallop Respiratory: no respiratory distress, no rales or rhonchi, clear to auscultation Gastrointestinal: normoactive bowel sounds, soft, non-tender abdomen, no palpable masses Skin: no rashes or abrasions, no fluctuance, no induration Neurologic: AAOx3, sensation intact bilaterally Psychiatric: interacting appropriately, not anxious, not encephalopathic, thought process linear ICD10 Worksheet Patient Problems: Problems Problem Status Onset CVA (cerebral vascular accident) Acute Cerebral amyloid angiopathy Acute
[2017-07-01] MEDS: LOSARTAN POTASSIUM 50 MG TAB PO SCH (20:36)
[2017-07-02] MEDS: CLOPIDOGREL BISULFATE 75 MG TAB PO SCH (08:21)
[2017-07-02] MEDS: ATORVASTATIN CALCIUM 40 MG TAB PO SCH (08:21)
--- NOTE | 2017-07-02 09:37 | NEUROPROG ---
Assessment: 1. Transient neurologic symptoms 2. Hypertension 3. Subcortical, microvascular white matter disease 4. Cerebral amyloid angiopathy The MRI brain shows some evolving white matter changes in the right parietal area. There was no hyper acute infarct, no diffusion-weighted changes in the left M3 distribution. The CTA results are not clear in terms of their clinical significance at this point. I again had a long discussion with the patient of the pros and cons of anti- platelet therapy in this specific setting. On 1 hand, she is at high risk for small-vessel lacunar type infarcts based on her clinical history, hypertension and severe degree of imaging/white matter abnormalities. On the other hand, she is at high risk for catastrophic lobar hemorrhage based on the high burden of cerebral amyloid angiopathy her imaging reveals with multiple numerous micro hemorrhages. After this long discussion, the patient opted for chronic anti-platelet therapy with 75 mg of Plavix daily - as she would rather have a catastrophic brain hemorrhage rather than ischemic stroke which could prolong suffering. I think this is reasonable and support her in her decision. She understands the benefits, alternatives and risks with Plavix 75 mg daily. I have written a prescription for Plavix 75 mg daily. She will follow-up with me as an outpatient on July 08. Her blood pressures have normalized with treatment , appreciate the management by Hospital Medicine regards her blood pressure. She will be meeting with case management later to review her living situation. From my view, from a neurologic standpoint, she can discharge home any time and I will look forward to seeing her as an outpatient in a few days. We will sign off and follow up as needed now. Please do not hesitate to call with any questions or changes in neurologic status with this very pleasant patient. Subjective: No new symptoms Objective: Vital Signs Temp Pulse Resp BP Pulse Ox 36.7 C 68 18 162/73 H 96 07/02/17 08:00 07/02/17 08:00 07/02/17 08:00 07/02/17 08:00 07/02/17 08:00 07/01/17 07/02/17 07/03/17 05:59 05:59 05:59 Intake Total 2104 Balance 2104 PT 13.1 SEC (12.0-15.0) 06/30/17 14:50 INR 0.97 (0.83-1.16) 06/30/17 14:50 Awake and alert No aphasia Psychomotor slowing 35 total minutes floor time; including reviewing MRI images, interval history and counseling with the patient regarding her clinical care. Allergies/Adverse Reactions: Sulfa (Sulfonamide Antibiotics) Allergy (Verified 05/24/17 13:55)
--- NOTE | 2017-07-02 09:41 | PDMN ---
Medical Necessity Medical necessity: change to IP; los>2mn for TIA, possibly r/t HTN; requires cognition eval per SLT, continued monitoring of BPon M/S; comorbid cerebral amyloid angiopathy w/microhemorrhages w/ increased risk w/antiplatelet rx, vascular dementia, hld, and microscopic colitis; per order and progress note
--- NOTE | 2017-07-02 14:55 | ASMTCMCOM ---
CM Note CM Note Notes: Spoke with patient about the new recommendations from PT/OT. Patient is willing to do inpatient rehab with our [facility] program. Spoke with Marnie, who is finalizing arrangements and plans to take patient tomorrow 07/03/17. Will arrange transportation in the morning for 11:00 AM so patient arrives before lunch. Patient is contacting her son to get clothes and supplies for her stay. Patient inquired if there was a social services with inpatient rehab who could help with services in the home and she was informed there was. Marnie will inform PT/OT so they know not to work with patient tomorrow. CM will follow. Date Signed: 07/02/2017 02:55 PM Electronically Signed By:Shahana Felipe LCSW
--- NOTE | 2017-07-02 18:58 | HOSPPROG ---
Hospitalist Progress Note Assessment/Plan: Assessment: 76 yo F p/w acute TIA in setting of HTN emergency Plan: # TIA - acute, may be hypertensive in origin -unable to take ASA due to GI side effects -patient agreed to Plavix/statin to reduce CVA risk -appreciate ongoing neuro consult by Dr. Harley -counseled patient that she should have outpt Cards eval to determine if linq appropriate # Cerebral Amyloid Angiopathy - multiple punctate multifocal microhemorrhages on MRI -increased risk with anti-platelet tx # Vascular dementia - chronic, resulting in challenges functioning safely at home -counseled patient that she has MRI w/ old lacunes in basal ganglia, thalamus, roxy -participated in ENGINEERING GEOLOGIST cog eval and counseled patient that she will likely require ongoing outpatient monitoring and home safety eval w/ home care to help patient manage her cluttered interior # HTN emergency - evidenced by SBP 210 w/ microhemorrhages on MRI -BP better - restarted PO losartan w/ current SBP 130-160 # Hyperlipidemia - goal LDL < 70 -started statin # Microscopic colitis - chronic, asymptomatic Diet. Regular PPx. High risk, SCDs Code. DNR Dispo. ADD 07/03, pending stability of above. Subjective: patient concerned about her aversion to paper and opening mail Objective: Vital Signs Temp Pulse Resp BP Pulse Ox 36.4 C 65 14 171/87 H 94 07/02/17 16:00 07/02/17 16:00 07/02/17 16:00 07/02/17 16:00 07/02/17 16:00 07/01/17 07/02/17 07/03/17 05:59 05:59 05:59 Intake Total 2104 Balance 2104 PT 13.1 SEC (12.0-15.0) 06/30/17 14:50 INR 0.97 (0.83-1.16) 06/30/17 14:50 - Time Spent With Patient Time Spent with Patient: greater than 35 minutes Time Spent with Patient: Greater than 35 minutes spent on this patients care, greater than 50% of time spent counseling, educating, and coordinating care regarding the above mentioned plan. - Physical Exam Constitutional: no apparent distress, not in pain, chronically ill appearing, No uncomfortable Cardiovascular: No systolic murmur, No irregularly irregular, No tachycardia, No edema Neurologic: AAOx3, other (slow gait but not ataxic) Psychiatric: interacting appropriately, not anxious, other (some slowed word recall), No agitated ICD10 Worksheet Patient Problems: Problems Problem Status Onset CVA (cerebral vascular accident) Acute Cerebral amyloid angiopathy Acute
[2017-07-02] MEDS: LOSARTAN POTASSIUM 50 MG TAB PO SCH (21:13)
[2017-07-03 08:42] VITALS: BP 194/86; PULSE 86; RESP 17; TEMP 98.4; O2SAT 95
[2017-07-03] MEDS ORDERED: MECLIZINE HCL 25 MG TAB PO PRN (08:53)
[2017-07-03] MEDS ORDERED: CHLORTHALIDONE 25 MG TAB PO SCH (09:00)
[2017-07-03] MEDS: ATORVASTATIN CALCIUM 40 MG TAB PO SCH (09:15)
[2017-07-03] MEDS: CLOPIDOGREL BISULFATE 75 MG TAB PO SCH (09:15)
--- NOTE | 2017-07-03 10:05 | PDIAF ---
- Diagnosis Diagnosis: TIA, HTN emergency, multifocal microhemorrhages w/ old lacunar infarcts Code Status: Do Not Resuscitate - Medication Management Discharge Medications: Medications to Continue on Transfer Herbals/Supplements -Info Only 1 ea PO DAILY 06/30/17 [Last Taken Unknown] Losartan Potassium [Cozaar] 100 mg PO HS 06/30/17 [Last Taken 06/29/17] Acetaminophen [Tylenol ES 500 mg (*)] 500 - 1,000 mg PO Q6HRS PRN tab 07/03/17 [Last Taken Unknown] Atorvastatin Calcium [Lipitor 40 mg (*)] 40 mg PO DAILY tab 07/03/17 [Last Taken Unknown] Chlorthalidone [Chlorthalidone 25 mg (*)] 12.5 mg PO DAILY tab 07/03/17 [Last Taken Unknown] Clopidogrel Bisulfate [Plavix (*)] 75 mg PO DAILY tab 07/03/17 [Last Taken Unknown] Meclizine HCl [Meclizine HCl 25 mg (RX,OTC)] 12.5 - 25 mg PO BID PRN tab [Last Taken Unknown] Assisted Antibiotics: NA Discharge Medications: Refer to the Discharge Home Medication list for PRN reason. PICC Care - Routine: N/A - Orders Services needed: Registered Nurse, Certified Hearing Examiner, Master Arc Welding Machine Operator , Physical Therapy, Occupational Therapy, Speech Language Pathologist (cog therapy) Isolation Type: None Oxygen: NA Diet Recommendation: cardiac -low fat low salt Diet Texture: Regular Texture Diet Weigh Patient: weekly Activity/Weight Bearing Restrictions: as tolerated - Labs/Radiology BMP Date: 07/07/17 - Follow Up Care Current Providers and Referrals: Patient,NotPresent [Unknown] - As per Instructions Rick Harley MD [Medical Doctor] - follow up in 2 weeks Georgia Whyte MD [Medical Doctor] - follow up in 2 weeks
--- NOTE | 2017-07-03 14:56 | GHP ---
[f rep st] HISTORY AND PHYSICAL DATE OF ADMISSION: 07/01/2017 CANCEL DICTATION. /[id number]/MODL
--- NOTE | 2017-07-03 16:10 | PDDCSUM ---
Discharge Summary Discharge Summary: DISCHARGE SUMMARY FOLLOW-UP ITEMS: Repeat creatinine BUN and lytes next Friday DATE OF ADMISSION: 06/30/2017 DATE OF DISCHARGE: 07/03/2017 DISCHARGE DIAGNOSES: 1. Acute hypertensive emergency 2. Acute TIA 3. Chronic cerebral amyloid angiopathy 4. Chronic vascular dementia 5. Suspected BPPV CONSULTATIONS: Neurology, Pulmonary Critical Care PROCEDURES / IMAGING: MRI demonstrating old lacunar infarct in the bilateral basal ganglia, thalamus, roxy CHIEF COMPLAINT: Acute lightheadedness SUBJECTIVE: Patient is feeling well at time of discharge, she continues to feel lightheaded with positional changes PHYSICAL EXAM ON DISCHARGE: Systolic blood pressure 160-190, heart rate 60-80, afebrile overnight, satting well on room air, has facial symmetry comma motor strength is 5/5 bilateral upper and lower extremities, she is alert awake oriented x3, insight good LABS ON DISCHARGE: LDL 98 hemoglobin A1c 5.6% HOSPITAL COURSE BY PROBLEM: 1. Acute hypertensive emergency. Evidenced by systolic blood pressure 210 with micro hemorrhages on MRI, symptomatic TIA, requiring initial management with IV antihypertensives, then re-initiation of her home dosage of losartan, as well as introduction of low-dose chlorthalidone. During hospitalization, her goal systolic blood pressure was 140-180. She will require electrolyte monitoring while on chlorthalidone, as well as up titration in the outpatient setting for a goal systolic blood pressure of 120-140, given her underlying vascular dementia. 2. Acute TIA. Most likely attributable cause of her presenting symptoms, seen consultation by Neurology, they recommended secondary CVA prevention with Plavix , statin, blood pressure management. Aspirin was not recommended given her inability to tolerate secondary to GI side effects. Patient did not demonstrate any evidence of atrial arrhythmias on telemetry, but consideration should be given to outpatient LINQ recorder, given her inability to safely navigate an outpatient Holter monitor. She will follow up with Dr. Rick Harley in the outpatient setting. 3. Chronic vascular dementia. Most likely secondary to uncontrolled hypertension as well as amyloid angiopathy, the patient has old lacunar infarcts on MRI and these have resulted in challenges in daily functioning at home. The patient was seen by all of her therapy modalities, and they recommended inpatient rehab. The patient will undergo therapy at that location at this time. 4. Chronic cerebral amyloid angiopathy. Patient had multiple punctate multifocal micro hemorrhages on MRI, and she will be at increased risk of intracranial hemorrhage now that she is on anti-platelet therapy. Recommend management of her systolic blood pressure with a goal of 120-140, but this should be accomplished over the span of approximately 1 week, given her recent hypertensive emergency and the risk of inducing ischemic CVA if her blood pressure is too aggressively lowered too rapidly. 5. Chronic BPPV. I suspect the patient has underlying BPPV, given her description of her to Naina symptoms intermittently, and she should trial meclizine. That being said, her symptoms could certainly be secondary to intermittent microvascular ischemia, and CVA prevention should be undertaken aggressively as outlined above. The patient has missed her scheduled follow-up appointment with ENT, and this should be rescheduled prior to discharge from inpatient rehab. DISCHARGE MEDICATIONS: Please see official discharge medication reconciliation sheet in chart , continue home medications, add Plavix 75 mg daily, add atorvastatin daily, add chlorthalidone 12.5 mg daily, add meclizine as needed. DISCHARGE INSTRUCTIONS: Please schedule outpatient follow-up with Dr. Rick Harley, ENT. TIME SPENT: Greater than 30 minutes were spent on direct patient care, as well as discharge planning and preparation.
--- NOTE | 2017-07-04 10:52 | ASDISCHSUM ---
Discharge Information Plan Status:Inpatient Rehab Medically Cleared to Leave: Discharge Date:07/03/2017 11:21 AM CM D/C Disposition:[facility] Acute ADT D/C Disposition:[facility] IP Projected Discharge Date:07/03/2017 11:21 AM Transportation at D/C:Wheelchair Van Discharge Delay Reason: Follow-Up Date:07/03/2017 11:21 AM Discharge Slot: Final Diagnosis: Placement Information Patient Contact Information Contact Name:PETRA Relationship: Address: Work Phone: City:[facility] Alternate Phone: State/Direct Vet Marketing Code:[place] Email: Financial Information Financial Class: Primary Plan Desc:MEDICARE INPATIENT Primary Plan Number:[id number] Secondary Plan Desc:[employer]/MDR SUPPLEMENT Secondary Plan Number:[id number] Assessment Information LACE LACE Acuity / Level of Care Answers: Was the patient admitted to hospital via the emergency department? Yes: Comorbidities - select Answers: Cerebrovascular disease all that apply Moderate or severe liver disease or renal disease Emergency dept visits in Answers: 2 last 6 months Score: 10 Date Signed: 06/30/2017 06:12 PM Electronically Signed By:Park Francisco RN [facility] CM Progress Note CM Note CM Note Notes: Patient presented to ED via EMS as Stroke Alert after having acute onset of right sided weakness. Patient has a history of cerebral amyloidosis and old lacunar infarct seen on MRI from 05/24/17. Patient has been followed by neurologist Dr. Harley. Patient has an appointment tomorrow with her ENT to follow-up from recent visit for dizziness/gait issues. Patient's CT showed possible occlusion of middle cerebral artery. Patients symptoms have resolved, surgery is not indicated at the time of neuro consult in the ED. Som with Spiritual Services, texted patient's son Ashish Loco ([phone]), who is hearing impaired. He arrived shortly thereafter. Exact DC needs unknown. CM to follow. Date Signed: 06/30/2017 06:26 PM Electronically Signed By:Park Francisco RN [facility] CM Progress Note CM Note CM Note Notes: Son who is hearing impaired reported to RN that when he went to feed his mother's cats found her house unlivable. Patient reports to me that she gets very overwhelmed at the tasks she faces at home. She was very familiar with community resources and had made many calls. She wants to stay in her bi-level home as long as possible and not wanting to spend money-wants to save for her son. She was given the Res Book. [facility]ed [facility] as well as the Ctr that could maybe help with less costs. Patient would benefit by having a HC MANAGEMENT AND BUDGET ANALYST. She would like HC services. Date Signed: 07/01/2017 05:29 PM Electronically Signed By:Fang Mayer LCSW [facility] CM Progress Note CM Note CM Note Notes: Spoke with patient about the new recommendations from PT/OT. Patient is willing to do inpatient rehab with our [facility] program. Spoke with Marnie, who is finalizing arrangements and plans to take patient tomorrow 12/21/17. Will arrange transportation in the morning for 11:00 AM so patient arrives before lunch. Patient is contacting her son to get clothes and supplies for her stay. Patient inquired if there was a social worker assistant with inpatient rehab who could help with services in the home and she was informed there was. Marnie will inform PT/OT so they know not to work with patient tomorrow. CM will follow. Date Signed: 07/02/2017 02:55 PM Electronically Signed By:Shahana Felipe LCSW Case Management Discharge Plan Note Case Management Discharge Discharge Order Complete? Answers: Yes Patient to Obtain Answers: Other Notes: [facility] Inpatient Rehab Medications Transportation Arranged Answers: Other Notes: [facility] Transport will Pick (Date 07/03/2017 11:00 AM & Time) Case Management Transport Answers: Yes Notes: [facility] in chart Form Complete Faxed Final Orders Answers: Yes Notes: [facility] Inpatient Rehab Agency/Facility Transfer Answers: Yes Notes: [facility] Inpatient Rehab Report Printed & Faxed to Receiving Agency Family Notified Answers: Yes Notes: Notified patient's son yesterday Discharge Comments Notes: Patient d/cing to [facility] Inpatient Rehab today, 07/03/17. Date Signed: 07/03/2017 11:15 AM Electronically Signed By:Shahana Felipe LCSW Intervention Information Intervention Type:*VOGT-Signed Date of Service:07/01/2017 12:25 PM Patient Type:Observation Staff Member:Mahi Marie Hours: Discipline: Severity: Comment:
== END 2017-07-03 11:21 | DRG 69 ==
LOC: EDUNIT# → F2N 18:31 → OBSVTOIN 07-01 14:19
PROVIDERS: ADMIT Student in an Organized Health Care Education/Training Program; ATTEND Student in an Organized Health Care Education/Training Program
DX: G45.9 Transient cerebral ischemic attack, unspecified (principal); I16.1 Hypertensive emergency; E85.4 Organ-limited amyloidosis; I68.0 Cerebral amyloid angiopathy; F01.50 Vascular dementia, unspecified severity, without behavioral disturbance, psychotic disturbance, mood disturbance, and anxiety; H81.10 Benign paroxysmal vertigo, unspecified ear; K52.838 Other microscopic colitis; Z66 Do not resuscitate
CPT/HCPCS: 82947-QW; 92507-GN; 92523-GN; 97116-GP; 97162-GP; 97166-GO; 97530-GO; 97532-GO; 97535-GO; G0378; G8978-GP-CJ; G8979-GP-CI; G8987-GO-CJ; G8988-GO-CI; G9162-GN-CI; G9163-GN-CI; J2405; J3490; Q9967

== ENCOUNTER 2017-07-02 15:36 | Inpatient (IN) | payer OTHER, MEDICARE ==
[2017-07-03] MEDS ORDERED: MECLIZINE HCL 25 MG TAB PO PRN (13:38)
[2017-07-03] MEDS ORDERED: ACETAMINOPHEN 500 MG TAB PO PRN (13:38)
--- NOTE | 2017-07-03 15:06 | PDOREHIP ---
Admission [facility] - Admission - 3 Day Assessment Period Admission Date/Day 1: 07/03/17 Day 2: 07/04/17 Day 3: 07/05/17 - Active Diagnoses Comorbidities and Co-existing Conditions at Admission: 17221. None of the Above - Skin Conditions Unhealed Pressure Ulcer (1 or more/Stage 1 or >)-Admission: 0. No
--- NOTE | 2017-07-03 17:26 | GHP ---
[f rep st] HISTORY AND PHYSICAL POST ADMISSION PHYSICIAN EVALUATION AND REHABILITATION TREATMENT PLAN DATE OF ADMISSION: 07/03/2017 DATE OF EVALUATION: 07/03/2017 TIME OF EVALUATION: 1415 REFERRING FACILITY: [facility]. REFERRING PHYSICIAN: Zoran Engle MD IMPAIRMENT GROUP: 1.9. DATE OF ONSET: 06/30/2017 CONSULTING PHYSICIANS: There was a consultation with neurologist, Rick Harley MD REHABLITATION DIAGNOSES: Debility, status post subacute cerebrovascular accident versus transient ischemic attack. ETIOLOGIC DIAGNOSIS: Other, stroke. HISTORY OF PRESENT ILLNESS: This patient is a 76-year-old woman, who developed left facial weakness while in a physical therapy session outpatient at [facility]. A stroke alert was called, and she was taken to the hospital. Brain imaging revealed a subacute lacunar infarct in the right parietal periventricular white matter. She also had multiple old lacunar infarcts bilaterally in the basal ganglia and the thalami and on the right side of the roxy. She was found to have markedly elevated blood pressure of 172/104, which peaked later the same day at 210/118, so there may have been a component of hypertensive encephalopathy, as well. She was medically stabilized and eventually begun on clopidogrel and atorvastatin for secondary prevention of CVA. She was hesitant regarding the clopidogrel, due to her history of amyloid angiopathy and the risk for bleed. She was additionally begun on chlorthalidone for improved blood pressure control. She was participating in therapies and appropriate for inpatient rehabilitation. STUDIES AND LABS IN THE HOSPITAL: CBC was completely within normal limits. Coagulation revealed normal PT and PTT. Serum chemistry was consistent with mild renal insufficiency, stage 3, on 07/01/2017. Creatinine was 1.1 and estimated GFR was 48. Liver function tests were essentially within normal limits. She had a very slightly low albumin at 3.2. Lipid panel revealed an LDL of 98 and HDL of 89. Troponin I was less than 0.012. EKG showed sinus rhythm and first-degree AV block. Echocardiogram was a limited study. She had concentric left ventricular hypertrophy, normal systolic function with an ejection fraction of 71%, and diastolic dysfunction. PRECAUTIONS: She is a fall risk. ACTIVE COMORBIDITIES: She has no active tier 1, tier 2, or tier 3 comorbidities. PAST MEDICAL HISTORY: 1. Hypertension. 2. Chronic renal insufficiency, stage 3. 3. Cerebral amyloidosis. 4. Microscopic colitis. 5. Benign positional paroxysmal vertigo. 6. Peripheral neuropathy. PAST SURGICAL HISTORY: Per the emergency department note, she has had a partial nephrectomy. PREHOSPITAL MEDICATIONS: She was taking losartan 100 mg at bedtime. ADMISSION MEDICATIONS: 1. Losartan 100 mg p.o. at bedtime. 2. Acetaminophen 500 to a 1000 mg p.o. q.6 hours p.r.n. 3. Meclizine 12.5 to 25 mg p.o. b.i.d. p.r.n. vertigo. 4. Clopidogrel 75 mg p.o. daily. 5. Chlorthalidone 12.5 mg p.o. daily. 6. Atorvastatin 40 mg p.o. daily. ALLERGIES: Listed to sulfonamide antibiotics. FAMILY HISTORY: There is a significant family history of strokes. PSYCHOSOCIAL HISTORY: She is a nonsmoker. She lives alone. She has a local son living in [place]. REVIEW OF SYSTEMS: She is not currently having vertigo, but she did have several episodes in the hospital. The major episode of her vertigo began approximately 6 weeks ago and has overall improved. She has had several falls over the past several months, one being due to vertigo, in which she broke the tank of her toilet and suffered a laceration to her hand. She denies current weakness of the extremities. She has some reduced sensation in her feet due to peripheral neuropathy. She denies headache. She notes some visual abnormalities with difficulty focusing the left eye. She denies difficulty swallowing. She denies chest pain or palpitations. She denies cough, dyspnea. She reports that she has an occasional cough and sometimes brings up some sputum. She denies nausea, vomiting, constipation, or diarrhea. She reports chronic urinary incontinence and occasional polyuria overnight. She denies joint swelling or joint pain. She denies skin rash or skin breakdown. Otherwise, a 10-point Review of Systems is negative. PHYSICAL EXAMINATION: VITAL SIGNS: Not yet available in the chart. This morning at the hospital blood pressure was 194/86, heart rate was 86, respiratory rate was 17, oxygen saturation was 95% on room air, temperature was 36.9 degrees centigrade. Her weight was most recently measured at 79 kg, for a body mass index of 26.5. GENERAL: This is a well-nourished, well-developed, elderly female, appears her chronologic age, cooperative, and in no acute distress. HEENT: Extraocular movements are intact, though she has some jumpy saccades. Pupils are equal, round, and reactive to light. Mucous membranes are moist. Dentition is in good condition. She has a moderately crowded airway, Mallampati class 3. NECK: Supple. HEART: There is regular rate and rhythm, with no murmurs, rubs, or gallops. LUNGS: Clear to auscultation bilaterally. ABDOMEN : Soft, nontender, nondistended, with normoactive bowel sounds and no hepatosplenomegaly. EXTREMITIES: There is no cyanosis, clubbing, or edema. Radial and dorsalis pedis pulses are 2+ bilaterally. NEUROLOGIC: She is alert and oriented x3. She is circumloquacious and can lose track of the conversation. She does not appear to have word-finding difficulties, and she has detailed memory of recent and distant events. Cranial nerves 2 through 12 are grossly intact, with the exception of jumpy saccades with eye movements. There is no focal weakness. Sensation is intact to light touch. Deep tendon reflexes are 2+ bilaterally at the biceps, patellar, and Achilles tendons. Plantar reflex is upgoing on the left and indeterminate on the right. CURRENT LEVEL OF FUNCTION: Regarding diet, feeding, and swallowing, she is on a regular diet. She accomplished grooming with setup at the sink. She required standby assist for lower body dressing. Toilet transfers were done with modified independence using grab bars and a cane. She had a raised toilet seat. She was independent with pericare and clothing management. Regarding bowel and bladder, she was noted to be continent. Bed mobility and transfers were done with standby assist. She used a cane or trekking poles, and she used grab bars. Seated balance was independent. Standing balance required standby assist. Endurance was fair. She was able to ambulate 15 feet with contact guard and voice cues, using trekking poles, and she went 350 feet with contact guard and voice cues, with an altered gait pattern, decreased balance, path deviation, lateral sway, and a narrow step width. She improved with cues to focus on a distant point. She was able to negotiate 12 stairs with contact guard assist and a gait belt for safety. Regarding cognition, she was noted to have mild impairment in executive function and decreased insight. IMPRESSION: This patient is a 76-year-old woman, who came to the hospital on a stroke alert. Imaging revealed a late subacute lacunar infarct in the right parietal periventricular white matter without acute infarct. Additionally, she had multiple old lacunar infarcts bilaterally in the basal ganglia and thalami and on the right side of the roxy, and she had amyloid angiopathy. She also had evidence of microvascular ischemic gliosis. She was medically stabilized. She was seen in consultation by Neurology. She was begun on clopidogrel and atorvastatin for secondary stroke prevention, and she had the addition of chlorthalidone to her losartan for improved blood pressure control. She was medically stable and ready for inpatient rehabilitation. Her goal is to complete a rehabilitation stay and then discharge home with supportive services. For a safe discharge, it is anticipated that she will achieve independence with bed mobility and transfers and modified independence with ambulation without loss of balance using the least restrictive device. She will be independent with grooming and dressing and modified independent for bathing. She will demonstrate knowledge regarding safe management of herself in her home environment. She will have therapy with Physical Therapy, Occupational Therapy, and Speech and Language Pathology for 60 minutes per day for each discipline on 5-7 days of the week. Her duration of stay is expected to be 5-7 days. It is anticipated that upon discharge she will continue to benefit from outpatient therapy including OT, TICKET WRITER, PT, and a stroke support group. PLAN: 1. Debility, status post cerebrovascular event on 06/30/2017. PT and OT to optimize mobility and ADLs toward a safe discharge home alone. 2. Cognitive impairment, question chronicity. To be evaluated and treated per Speech and Language Pathology. 3. Hypertension. Newly started on chlorthalidone. Monitor blood pressure. Continue losartan. Adjust or add medications as needed. Per hospital discharge plan, she is due for a repeat BMP on 07/07/2017. 4. Secondary stroke prophylaxis. Continue clopidogrel and atorvastatin. Monitor closely for any signs of intracranial hemorrhage with history of cerebral amyloid angiopathy. 5. History of vertigo consistent with benign paroxysmal positional vertigo. Consider the otolith repositioning procedure per Physical Therapy if she has recurrent episodes and continue the p.r.n. meclizine. 6. Prophylaxis. She has ambulated as far as 350 feet and she has no hemiparesis. Her risk for DVT is not high and her risk of bleed is elevated with clopidogrel and history of cerebral amyloid angiopathy. She will not receive any pharmacologic anticoagulation. She will have SCDs at night. /[id number]/MODL and [id number], 07/03/17, 0991 [facility]
[2017-07-03] MEDS: LOSARTAN POTASSIUM 50 MG TAB PO SCH (20:36)
[2017-07-03] MEDS ORDERED: NON-FORMULARY NEW DRUG (Losartan Potassium [Cozaar] 100 MG) PO SCH (21:00)
[2017-07-04] MEDS ORDERED: Herbals/Supplements -Info Only PO SCH (09:00)
[2017-07-04] MEDS: CLOPIDOGREL BISULFATE 75 MG TAB PO SCH (09:03)
[2017-07-04] MEDS: ATORVASTATIN CALCIUM 40 MG TAB PO SCH (09:03)
[2017-07-04] MEDS: CHLORTHALIDONE 25 MG TAB PO SCH (09:03)
--- NOTE | 2017-07-04 13:57 | SOAPPROG ---
SOAP Progress Note Assessment/Plan: Assessment: * Debility, status post cerebrovascular event on 06/30/2017. PT and OT to optimize mobility and ADLs toward a safe discharge home alone. * Cognitive impairment, question chronicity. * To be evaluated and treated per Speech and Language Pathology. * Hypertension. Newly started on chlorthalidone. No adverse effects noted. * Blood pressure improved but not at target. Continue to monitor. Continue losartan and chlorthalidone. * Repeat BMP on 07/07/2017. * Secondary stroke prophylaxis. Continue clopidogrel and atorvastatin. Monitor closely for any signs of intracranial hemorrhage with history of cerebral amyloid angiopathy. * History of vertigo consistent with benign paroxysmal positional vertigo. Consider the otolith repositioning procedure per Physical Therapy if she has recurrent episodes and continue the p.r.n. meclizine. * Prophylaxis. She has ambulated as far as 350 feet and she has no hemiparesis. Her risk for DVT is not high and her risk of bleed is elevated with clopidogrel and history of cerebral amyloid angiopathy. She will not receive any pharmacologic anticoagulation. She will have SCDs at night. 07/04/17 14:34 Subjective: Complains of a stiff neck this morning. Says this has happened on and off since she had her fall approximately 6 weeks ago. Slept very well. Otherwise not in pain, no cough or dyspnea, no fevers or chills. Objective: Vital Signs Temp Pulse Resp BP Pulse Ox 36.6 C 71 16 156/100 H 95 07/04/17 08:00 07/04/17 11:10 07/04/17 08:00 07/04/17 11:10 07/04/17 08:00 07/03/17 07/04/17 07/05/17 05:59 05:59 05:59 Intake Total 1050 Output Total 800 300 Balance 250 -300 Physical Exam - Physical Exam General Appearance: WD/WN, alert, no apparent distress Neck: limited range of motion Respiratory: normal breath sounds, No crackles, No rhonchi, No wheezing Cardiac/Chest: regular rate, rhythm, No edema Skin: normal color, warm/dry Neuro/Psych: alert, normal mood/affect, oriented x 3 ICD10 Worksheet Patient Problems: Problems Problem Status Onset CVA (cerebral vascular accident) Acute Cerebral amyloid angiopathy Acute
[2017-07-04] MEDS ORDERED: FLU VACC QS 2017-18 (3YR+)/PF 0.5 ML SYR (FLUARIX QUAD) IM ONE (17:19)
[2017-07-04] MEDS: LOSARTAN POTASSIUM 50 MG TAB PO SCH (20:51)
[2017-07-04] MEDS: [UNRECOGNIZED DRUG - MIXTURE] PO SCH ×2 (20:53→21:14)
[2017-07-05] MEDS: ATORVASTATIN CALCIUM 40 MG TAB PO SCH (08:54)
[2017-07-05] MEDS: CHLORTHALIDONE 25 MG TAB PO SCH (08:54)
[2017-07-05] MEDS: CLOPIDOGREL BISULFATE 75 MG TAB PO SCH (08:54)
--- NOTE | 2017-07-05 14:29 | SOAPPROG ---
SOAP Progress Note Assessment/Plan: Assessment: * Debility, status post cerebrovascular event on 06/30/2017. * Working on balance and safety issues. * Continue PT and OT to optimize mobility and ADLs toward a safe discharge home alone. * Cognitive impairment, question chronicity. * To be evaluated and treated per Speech and Language Pathology. * Hypertension. Newly started on chlorthalidone. No adverse effects noted. * Blood pressure improved but not at target. Continue to monitor. Continue losartan and chlorthalidone. * Repeat BMP on 07/07/2017. * Secondary stroke prophylaxis. Continue clopidogrel and atorvastatin. Monitor closely for any signs of intracranial hemorrhage with history of cerebral amyloid angiopathy. * Possible URI. Prescribed a ascorbic acid; she requested lozenges and these do not seem to be available in the hospital. * History of vertigo consistent with benign paroxysmal positional vertigo. No recurrence currently. Not using p.r.n. meclizine. * Prophylaxis. She has ambulated as far as 350 feet and she has no hemiparesis. Her risk for DVT is not high and her risk of bleed is elevated with clopidogrel and history of cerebral amyloid angiopathy. She will not receive any pharmacologic anticoagulation. She will have SCDs at night. 07/05/17 14:29 Subjective: Feels like she is getting a cold. No sore throat. Runny nose and head congestion. She usually uses vitamin-C. Had questions about DNR status. Not in pain, no cough or dyspnea, not noting any adverse effects of blood pressure medicines. Objective: Vital Signs Temp Pulse Resp BP Pulse Ox 36.6 C 86 14 140/83 H 95 07/05/17 08:00 07/05/17 08:00 07/05/17 08:00 07/05/17 08:54 07/05/17 08:00 07/04/17 07/05/17 07/06/17 05:59 05:59 05:59 Intake Total 1050 238 350 Output Total 800 1000 1050 Balance 250 -138 -441 Physical Exam - Physical Exam General Appearance: WD/WN, alert, no apparent distress EENT: pharynx normal, No pharyngeal erythema, No tonsillar exudate Respiratory: normal breath sounds, No crackles, No rhonchi, No wheezing Cardiac/Chest: regular rate, rhythm, No edema Skin: normal color, warm/dry Neuro/Psych: no motor/sensory deficits, alert, normal mood/affect, oriented x 3 , abnormal gait (Narrow based, working with Physical therapy using bilateral tracking poles ensuring difficulty with timing and coordination.) ICD10 Worksheet Patient Problems: Problems Problem Status Onset CVA (cerebral vascular accident) Acute Cerebral amyloid angiopathy Acute
[2017-07-05] MEDS ORDERED: ASCORBIC ACID 500 MG TAB PO SCH (14:30)
[2017-07-05] MEDS: LOSARTAN POTASSIUM 50 MG TAB PO SCH (19:54)
[2017-07-05] MEDS: ASCORBIC ACID 500 MG TAB PO PRN (19:56)
[2017-07-05] MEDS: [UNRECOGNIZED DRUG - MIXTURE] PO SCH (20:01)
[2017-07-06] MEDS: CHLORTHALIDONE 25 MG TAB PO SCH (07:32)
[2017-07-06] MEDS: ATORVASTATIN CALCIUM 40 MG TAB PO SCH (07:32)
[2017-07-06] MEDS: CLOPIDOGREL BISULFATE 75 MG TAB PO SCH (07:32)
[2017-07-06] MEDS: ASCORBIC ACID 500 MG TAB PO PRN ×2 (07:37→21:49)
--- NOTE | 2017-07-06 12:15 | SOAPPROG ---
SOAP Progress Note Assessment/Plan: Assessment: * Debility, status post cerebrovascular event on 06/30/2017. * Working on balance and safety issues. * Continue PT and OT to optimize mobility and ADLs toward a safe discharge home alone. * Cognitive impairment, question chronicity. * Deficits to word findingm, memory, exec function. * Continue Speech and Language Pathology. * Hypertension. Newly started on chlorthalidone. No adverse effects noted. * Blood pressure improved but not at target. Continue to monitor. Continue losartan and chlorthalidone. * Repeat BMP on 07/07/2017. * Unclear etiology of elevated BP this morning. Consider titration of addition of BP meds after labs tomorrow 07/07/17. * Insomnia. Allow use of OTC sleep aid any [place] through the night. * Secondary stroke prophylaxis. Continue clopidogrel and atorvastatin. Monitor closely for any signs of intracranial hemorrhage with history of cerebral amyloid angiopathy. * Possible URI. Prescribed a ascorbic acid; she requested lozenges and these do not seem to be available in the hospital. * History of vertigo consistent with benign paroxysmal positional vertigo. No recurrence currently. Not using p.r.n. meclizine. * Prophylaxis. She has ambulated as far as 350 feet and she has no hemiparesis. Her risk for DVT is not high and her risk of bleed is elevated with clopidogrel and history of cerebral amyloid angiopathy. She will not receive any pharmacologic anticoagulation. She will have SCDs at night. 07/06/17 12:10 Subjective: She reports she was unable to get back to sleep after being up to urinate approximately 1 in the morning. She would like to be able to take her over-the- counter sleeping medication any time through the night. Upper respiratory infection symptoms are not present this morning; she had some cold symptoms last night at bedtime. She describes a sensation of pressure in her head from time to time which is not correlated with elevated blood pressure. Otherwise she is without complaints. No fevers, chills, cough, dyspnea. Objective: Vital Signs Temp Pulse Resp BP Pulse Ox 36.4 C 80 18 141/82 H 95 07/06/17 07:31 07/06/17 10:25 07/06/17 07:31 07/06/17 10:25 07/06/17 07:31 07/05/17 07/06/17 07/07/17 05:59 05:59 05:59 Intake Total 238 1330 360 Output Total 1000 2150 1000 [facility] -006 -824 -090 Physical Exam - Physical Exam General Appearance: WD/WN, alert, no apparent distress Respiratory: normal breath sounds, No crackles, No rhonchi, No wheezing Cardiac/Chest: regular rate, rhythm, No edema, No diastolic murmur, No systolic murmur Skin: normal color, warm/dry Neuro/Psych: no motor/sensory deficits, alert, normal mood/affect, oriented x 3 ICD10 Worksheet Patient Problems: Problems Problem Status Onset CVA (cerebral vascular accident) Acute Cerebral amyloid angiopathy Acute
[2017-07-06] MEDS ORDERED: MELATONIN 3 MG TAB PO SCH (21:00)
[2017-07-06] MEDS: LOSARTAN POTASSIUM 50 MG TAB PO SCH (21:42)
[2017-07-07] MEDS: [UNRECOGNIZED DRUG - MIXTURE] PO SCH ×2 (00:35→22:02)
[2017-07-07] MEDS: CHLORTHALIDONE 25 MG TAB PO SCH (09:27)
[2017-07-07] MEDS: ATORVASTATIN CALCIUM 40 MG TAB PO SCH (09:27)
[2017-07-07] MEDS: CLOPIDOGREL BISULFATE 75 MG TAB PO SCH (09:28)
[2017-07-07] MEDS: ASCORBIC ACID 500 MG TAB PO PRN ×2 (09:34→21:42)
--- NOTE | 2017-07-07 14:43 | SOAPPROG ---
SOAP Progress Note Assessment/Plan: Assessment: * Debility, status post cerebrovascular event on 06/30/2017. * Working on balance and safety issues. * Ambulating > 150'. Cues and close SBA for ADLs due to poor balance. * Continue PT and OT to optimize mobility and ADLs toward a safe discharge home alone. * Cognitive impairment, question chronicity. * Deficits to word finding, memory, exec function. * Continue Speech and Language Pathology. * Hypertension. Newly started on chlorthalidone. No adverse effects noted. * Blood pressure improved but not at target. Continue to monitor. Continue losartan and chlorthalidone. * Repeat BMP on 07/07/2017. * Unclear etiology of elevated BP 07/06/17. Consider titration of addition of BP meds after labs tomorrow 07/08/17. * Insomnia. Allow use of OTC sleep aid any time through the night. * Secondary stroke prophylaxis. Continue clopidogrel and atorvastatin. Monitor closely for any signs of intracranial hemorrhage with history of cerebral amyloid angiopathy. * Possible URI. Prescribed a ascorbic acid; she requested lozenges and these do not seem to be available in the hospital. * History of vertigo consistent with benign paroxysmal positional vertigo. No recurrence currently. Not using p.r.n. meclizine. * Prophylaxis. She has ambulated as far as 350 feet and she has no hemiparesis. Her risk for DVT is not high and her risk of bleed is elevated with clopidogrel and history of cerebral amyloid angiopathy. She will not receive any pharmacologic anticoagulation. She will have SCDs at night. 07/07/17 14:44 Subjective: No complaints today. Slept well those she was up for while in the bar tacker. Not in pain. No fevers, chills, cough, dyspnea. Interested in going home at the end of the week. Objective: Vital Signs Temp Pulse Resp BP Pulse Ox 36.4 C 66 17 146/76 H 97 07/07/17 08:00 07/07/17 08:00 07/07/17 08:00 07/07/17 09:27 07/07/17 08:00 07/06/17 07/07/17 07/08/17 05:59 05:59 05:59 Intake Total 1330 990 0 Output Total 2150 1400 Balance -820 -410 0 Physical Exam - Physical Exam General Appearance: WD/WN, alert, no apparent distress Respiratory: No respiratory distress, No accessory muscle use Skin: normal color, warm/dry Neuro/Psych: no motor/sensory deficits, alert, normal mood/affect, oriented x 3 ICD10 Worksheet Patient Problems: Problems Problem Status Onset CVA (cerebral vascular accident) Acute Cerebral amyloid angiopathy Acute
[2017-07-07] MEDS: LOSARTAN POTASSIUM 50 MG TAB PO SCH (21:39)
[2017-07-08] MEDS: [UNRECOGNIZED DRUG - MIXTURE] PO SCH ×2 (02:38→20:02)
[2017-07-08] MEDS: CLOPIDOGREL BISULFATE 75 MG TAB PO SCH (08:30)
[2017-07-08] MEDS: CHLORTHALIDONE 25 MG TAB PO SCH (08:30)
[2017-07-08] MEDS: ATORVASTATIN CALCIUM 40 MG TAB PO SCH (08:30)
--- NOTE | 2017-07-08 12:57 | SOAPPROG ---
SOAP Progress Note Assessment/Plan: Assessment: * Debility, status post cerebrovascular event on 06/30/2017. * Working on balance and safety issues. * Ambulating > 150'. Cues and close SBA for ADLs due to poor balance. * Continue PT and OT to optimize mobility and ADLs toward a safe discharge home alone. * Cognitive impairment, question chronicity. * Deficits to word finding, memory, exec function. * Continue Speech and Language Pathology. * Hypertension. Newly started on chlorthalidone. No adverse effects noted. * Blood pressure improved but not at target. Continue to monitor. Continue losartan and chlorthalidone; added amlodipine 2.5 mg QD on 07/08/2017. * Repeat BMP on 07/08/2017 wnl; tolerating diuretic. * Insomnia. Allow use of OTC sleep aid any time through the night. * Discussed sleep hygiene 07/08/2017. * She does not want additional sleep medication. * Secondary stroke prophylaxis. Continue clopidogrel and atorvastatin. Monitor closely for any signs of intracranial hemorrhage with history of cerebral amyloid angiopathy. * Possible URI. Prescribed a ascorbic acid; she requested lozenges and these do not seem to be available in the hospital. * History of vertigo consistent with benign paroxysmal positional vertigo. No recurrence currently. Not using p.r.n. meclizine. * Prophylaxis. She has ambulated as far as 350 feet and she has no hemiparesis. Her risk for DVT is not high and her risk of bleed is elevated with clopidogrel and history of cerebral amyloid angiopathy. She will not receive any pharmacologic anticoagulation. She will have SCDs at night. Needs to follow-up with Cardiology Dr. Whyte after discharge for LINQ monitor. 07/08/17 12:50 Subjective: Attained sleep well last night but awoke at 2 in the morning to urinate and was unable to get back to sleep for several hours. She checked E male and she did some reading on her computer while she was awake. Feels inattentive and "wobbly " regarding balance due to lack of sleep. Otherwise without complaints. No fevers, chills, cough, dyspnea. Objective: Vital Signs Temp Pulse Resp BP Pulse Ox 36.4 C 66 18 148/89 H 99 07/08/17 06:00 07/08/17 06:00 07/08/17 06:00 07/08/17 11:39 07/08/17 06:00 Laboratory Results 07/08/17 06:03 07/07/17 07/08/17 07/09/17 05:59 05:59 05:59 Intake Total 990 650 120 Output Total 1400 900 Balance -410 -250 120 Physical Exam - Physical Exam General Appearance: WD/WN, alert, no apparent distress Respiratory: No respiratory distress, No accessory muscle use Skin: normal color, warm/dry Neuro/Psych: no motor/sensory deficits, alert, normal mood/affect, oriented x 3 ICD10 Worksheet Patient Problems: Problems Problem Status Onset CVA (cerebral vascular accident) Acute Cerebral amyloid angiopathy Acute
[2017-07-08] MEDS: LOSARTAN POTASSIUM 50 MG TAB PO SCH (20:01)
[2017-07-09] MEDS: CHLORTHALIDONE 25 MG TAB PO SCH (08:17)
[2017-07-09] MEDS: ATORVASTATIN CALCIUM 40 MG TAB PO SCH (08:17)
[2017-07-09] MEDS: CLOPIDOGREL BISULFATE 75 MG TAB PO SCH (08:21)
--- NOTE | 2017-07-09 14:07 | SOAPPROG ---
SOAP Progress Note Assessment/Plan: Assessment: * Debility, status post cerebrovascular event on 06/30/2017. * Functional independence measure 88. Standby assistance with occasional contact guard assist for mobility. Decreased ability for new learning regarding using assistive device. ADLs overall at supervision level but needed minimal assistance for showering and shower transfer. * Ambulating > 150'. Cues and close SBA for ADLs due to poor balance. * Continue PT and OT to optimize mobility and ADLs toward a safe discharge home alone. * Cognitive impairment, question chronicity. * Deficits to new learning, critical thinking, abstract reasoning, executive functioning, attention to detail. Will need 24 hr supervision for safety. * Continue Speech and Language Pathology. * Hypertension. Newly started on chlorthalidone. No adverse effects noted. * Blood pressure improved but not at target. Continue to monitor. Continue losartan and chlorthalidone; added amlodipine 2.5 mg QD on 07/08/2017. * Repeat BMP on 07/08/2017 wnl; tolerating diuretic. * Insomnia. Allow use of OTC sleep aid any time through the night. * Discussed sleep hygiene 07/08/2017. * She does not want additional sleep medication. * Secondary stroke prophylaxis. Continue clopidogrel and atorvastatin. Monitor closely for any signs of intracranial hemorrhage with history of cerebral amyloid angiopathy. * Possible URI. Prescribed a ascorbic acid; she requested lozenges and these do not seem to be available in the hospital. * History of vertigo consistent with benign paroxysmal positional vertigo. No recurrence currently. Not using p.r.n. meclizine. * Prophylaxis. She has ambulated as far as 350 feet and she has no hemiparesis. Her risk for DVT is not high and her risk of bleed is elevated with clopidogrel and history of cerebral amyloid angiopathy. She will not receive any pharmacologic anticoagulation. She will have SCDs at night. Needs to follow-up with Cardiology Dr. Whyte after discharge for LINQ monitor. Attended staffing, 15 min. Discussed with case management, dietitian, pharmacist, nursing, PT, OT, EXPEDITIONARY FIGHTING [employer]LE CREWMAN. Patient's goal is to were to living at home alone but she is needing supervision for safety and has significant cognitive impairment. Case Management to continue to work with patient and family. Advising 24 hr caregiver versus moved to assisted living facility. If arrangements can be made for supervision and safety, will discharge on 07/17/2017. 07/09/17 14:03 Subjective: Feels better today. Says she slept 10 1/2 hours last night. Does not recall whether she needed for sleep supplement. Objective: Vital Signs Temp Pulse Resp BP Pulse Ox 36.5 C 68 16 144/86 H 94 07/09/17 08:00 07/09/17 08:00 07/09/17 08:00 07/09/17 08:21 07/09/17 08:00 Laboratory Results 07/08/17 06:03 07/08/17 07/09/17 07/10/17 05:59 05:59 05:59 Intake Total 650 120 420 Output Total 900 1600 Balance -250 -2760 420 - Time Spent With Patient Time Spent With Patient: Greater than 35 min floor time today, including more than 50% of time in coordination of care during staffing meeting, and counseling patient. Physical Exam - Physical Exam General Appearance: WD/WN, alert, no apparent distress Respiratory: No respiratory distress, No accessory muscle use Skin: normal color, warm/dry Neuro/Psych: no motor/sensory deficits, alert, normal mood/affect, oriented x 3 ICD10 Worksheet Patient Problems: Problems Problem Status Onset CVA (cerebral vascular accident) Acute Cerebral amyloid angiopathy Acute
[2017-07-09] MEDS: LOSARTAN POTASSIUM 50 MG TAB PO SCH (20:53)
[2017-07-09] MEDS: [UNRECOGNIZED DRUG - MIXTURE] PO SCH ×2 (20:54→22:53)
[2017-07-10] MEDS: ATORVASTATIN CALCIUM 40 MG TAB PO SCH (08:46)
[2017-07-10] MEDS: CHLORTHALIDONE 25 MG TAB PO SCH (08:46)
[2017-07-10] MEDS: CLOPIDOGREL BISULFATE 75 MG TAB PO SCH (08:47)
--- NOTE | 2017-07-10 15:14 | SOAPPROG ---
SOAP Progress Note Assessment/Plan: Assessment: * Debility, status post cerebrovascular event on 06/30/2017. * Functional independence measure 88 on 07/09/2017. Standby assistance with occasional contact guard assist for mobility. Decreased ability for new learning regarding using assistive device. ADLs overall at supervision level but needed minimal assistance for showering and shower transfer. * Ambulating > 150'. Cues and close SBA for ADLs due to poor balance. * Continue PT and OT to optimize mobility and ADLs. * Cognitive impairment, question chronicity. * Deficits to new learning, critical thinking, abstract reasoning, executive functioning, attention to detail. Will need 24 hr supervision for safety. * Continue Speech and Language Pathology. * Hypertension. Newly started on chlorthalidone. No adverse effects noted. * Blood pressure improved but not at target. Continue to monitor. Continue losartan and chlorthalidone; added amlodipine 2.5 mg QD on 07/08/2017. * Repeat BMP on 07/08/2017 wnl; tolerating diuretic. * Insomnia. Allow use of OTC sleep aid any time through the night. * Discussed sleep hygiene 07/08/2017. * She does not want additional sleep medication. * Secondary stroke prophylaxis. Continue clopidogrel and atorvastatin. Monitor closely for any signs of intracranial hemorrhage with history of cerebral amyloid angiopathy. * Possible URI. Prescribed a ascorbic acid PRN; she requested lozenges and these do not seem to be available in the hospital. * Symptoms have resolved. * History of vertigo consistent with benign paroxysmal positional vertigo. No recurrence currently. Not using p.r.n. meclizine. * Prophylaxis. She has ambulated as far as 350 feet and she has no hemiparesis. Her risk for DVT is not high and her risk of bleed is elevated with clopidogrel and history of cerebral amyloid angiopathy. She will not receive any pharmacologic anticoagulation. She will have SCDs at night. Needs to follow-up with Cardiology Dr. Whyte after discharge for LINQ monitor. Patient's goal is to return to living at home alone but she is needing supervision for safety and has significant cognitive impairment. Advising 24 hr caregiver versus moved to assisted living facility. If arrangements can be made for supervision and safety, will discharge on 07/17/2017. Family meeting scheduled for 07/15/2017. Will plan to send discharge summary to plant technician Dr. Cruz. 07/10/17 15:08 Subjective: Had some difficulty falling asleep last night but eventually attain sleep after taking her sleep supplement. Otherwise without complaint. No fevers, chills, cough, dyspnea. Reports that Dr. Cruz at [facility] is her plant technician and has been working to manage her blood pressure. Objective: Vital Signs Temp Pulse Resp BP Pulse Ox 36.5 C 62 15 126/66 H 93 07/10/17 08:00 07/10/17 08:00 07/10/17 08:00 07/10/17 08:46 07/10/17 08:00 Laboratory Results 07/08/17 06:03 07/09/17 07/10/17 07/11/17 05:59 05:59 05:59 Intake Total 120 420 780 Output Total 1600 1400 650 Balance -1480 -980 130 Physical Exam - Physical Exam General Appearance: WD/WN, alert, no apparent distress Respiratory: No respiratory distress, No accessory muscle use Skin: normal color, warm/dry Neuro/Psych: no motor/sensory deficits, alert, normal mood/affect, oriented x 3 , abnormal gait (Slow and excessively deliberate with unilateral tracking pole in right hand.) ICD10 Worksheet Patient Problems: Problems Problem Status Onset CVA (cerebral vascular accident) Acute Cerebral amyloid angiopathy Acute
[2017-07-10] MEDS: LOSARTAN POTASSIUM 50 MG TAB PO SCH (20:07)
[2017-07-10] MEDS: [UNRECOGNIZED DRUG - MIXTURE] PO SCH (20:21)
[2017-07-10] MEDS: ASCORBIC ACID 500 MG TAB PO PRN (20:29)
[2017-07-10] MEDS ORDERED: [UNRECOGNIZED DRUG - MIXTURE] PO PRN (22:01)
[2017-07-11] MEDS: ATORVASTATIN CALCIUM 40 MG TAB PO SCH (08:26)
[2017-07-11] MEDS: CLOPIDOGREL BISULFATE 75 MG TAB PO SCH (08:27)
[2017-07-11] MEDS: CHLORTHALIDONE 25 MG TAB PO SCH (08:37)
--- NOTE | 2017-07-11 13:27 | SOAPPROG ---
SOAP Progress Note Assessment/Plan: Assessment: * Debility, status post cerebrovascular event on 06/30/2017. * Functional independence measure 88 on 07/09/2017. [place] balance inventory improved from 35/56 to 42/56; still moderate fall risk. Standby assistance with occasional contact guard assist for mobility. Decreased ability for new learning regarding using assistive device. ADLs overall at supervision level but needed minimal assistance for showering and shower transfer. * Ambulating > 150'. Cues and close SBA for ADLs due to poor balance. * Continue PT and OT to optimize mobility and ADLs. * Cognitive impairment, question chronicity. * Deficits to new learning, critical thinking, abstract reasoning, executive functioning, attention to detail. Will need 24 hr supervision for safety. * [place] cognitive assessment score improved to 20 04/12. Deficits more likely a subcortical and cortical including reduced speed of processing. * Continue Speech and Language Pathology. * Hypertension. Newly started on chlorthalidone. No adverse effects noted. * Blood pressure improved but not at target. Continue to monitor. Continue losartan and chlorthalidone; added amlodipine 2.5 mg QD on 07/08/2017. * Repeat BMP on 07/08/2017 wnl; tolerating diuretic. * Insomnia. Allow use of OTC sleep aid any time through the night. * Discussed sleep hygiene 07/08/2017. * She does not want additional sleep medication. * Secondary stroke prophylaxis. Continue clopidogrel and atorvastatin. Monitor closely for any signs of intracranial hemorrhage with history of cerebral amyloid angiopathy. * Possible URI. Prescribed a ascorbic acid PRN; she requested lozenges and these do not seem to be available in the hospital. * Symptoms have resolved. * History of vertigo consistent with benign paroxysmal positional vertigo. No recurrence currently. Not using p.r.n. meclizine. * Prophylaxis. She has ambulated as far as 350 feet and she has no hemiparesis. Her risk for DVT is not high and her risk of bleed is elevated with clopidogrel and history of cerebral amyloid angiopathy. She will not receive any pharmacologic anticoagulation. She will have SCDs at night. Needs to follow-up with Cardiology Dr. Whyte after discharge for LINQ monitor. Attended family meeting, 30 min. Patient and son were present. Discussed with case management, nursing, PT, OT, MANAGER OF EMPLOYEE RELATIONS. Continue to recommend 24 hr supervision. Patient and son have opted for discharge to SNF to continue Medicare rehabilitation with subsequent possible discharge home. In the meantime construction work is ongoing at her condominium to repair broken toilet and water damage from her fall. Discharge date set for 07/15/2017. Will plan to send discharge summary to willow analyst Dr. Cruz. 07/11/17 13:27 Subjective: No complaints. Slept well. Not noticing adverse effects of addition of amlodipine. Objective: Vital Signs Temp Pulse Resp BP Pulse Ox 36.5 C 63 16 145/77 H 95 07/11/17 05:57 07/11/17 05:57 07/11/17 05:57 07/11/17 08:37 07/11/17 05:57 Laboratory Results 07/08/17 06:03 07/10/17 07/11/17 07/12/17 05:59 05:59 05:59 Intake Total 420 1348 Output Total 1400 2000 Balance -886 -922 - Time Spent With Patient Time Spent With Patient: Greater than 35 min floor time today, including more than 50% of time in coordination of care and counseling during family meeting. Physical Exam - Physical Exam General Appearance: WD/WN, alert, no apparent distress Respiratory: No respiratory distress, No accessory muscle use Cardiac/Chest: No edema Skin: normal color, warm/dry Neuro/Psych: no motor/sensory deficits, alert, normal mood/affect, oriented x 3 , abnormal gait (Narrow base, step through pattern. Slow and somewhat tentative with trekking pole in left hand.) ICD10 Worksheet Patient Problems: Problems Problem Status Onset CVA (cerebral vascular accident) Acute Cerebral amyloid angiopathy Acute
[2017-07-11] MEDS: LOSARTAN POTASSIUM 50 MG TAB PO SCH (20:16)
[2017-07-11] MEDS: ASCORBIC ACID 500 MG TAB PO PRN (20:22)
[2017-07-12] MEDS: CHLORTHALIDONE 25 MG TAB PO SCH (08:40)
[2017-07-12] MEDS: CLOPIDOGREL BISULFATE 75 MG TAB PO SCH (08:41)
[2017-07-12] MEDS: ASCORBIC ACID 500 MG TAB PO PRN ×2 (08:41→20:21)
[2017-07-12] MEDS: ATORVASTATIN CALCIUM 40 MG TAB PO SCH (08:42)
--- NOTE | 2017-07-12 11:19 | SOAPPROG ---
SOAP Progress Note Assessment/Plan: Assessment: * Debility, status post cerebrovascular event on 06/30/2017. * Functional independence measure 88 on 07/09/2017. [place] balance inventory improved from 35/56 to 42/56; still moderate fall risk. Standby assistance with occasional contact guard assist for mobility. Decreased ability for new learning regarding using assistive device. ADLs overall at supervision level but needed minimal assistance for showering and shower transfer. * Ambulating > 150'. Cues and close SBA for ADLs due to poor balance. * Continue PT and OT to optimize mobility and ADLs. * * Dysphagia: advanced to DD1 c nectar thick liquids. Tube feedings D/C'd cand D/C feeding tube at 6 weeks post. * Cognitive impairment, question chronicity. * Deficits to new learning, critical thinking, abstract reasoning, executive functioning, attention to detail. Will need 24 hr supervision for safety. * [place] cognitive assessment score improved to 20 04/12. Deficits more likely a subcortical and cortical including reduced speed of processing. * Continue Speech and Language Pathology. * Hypertension. Newly started on chlorthalidone. No adverse effects noted. * Blood pressure improved but not at target. Continue to monitor. Continue losartan and chlorthalidone; added amlodipine 2.5 mg QD on 07/08/2017. No gross benefit noted. * Repeat BMP on 07/08/2017 wnl; tolerating diuretic. * Insomnia. Allow use of OTC sleep aid any time through the night. * Discussed sleep hygiene 07/08/2017. * She does not want additional sleep medication. * Secondary stroke prophylaxis. Continue clopidogrel and atorvastatin. Monitor closely for any signs of intracranial hemorrhage with history of cerebral amyloid angiopathy. * Possible URI. Prescribed ascorbic acid PRN; she requested lozenges and these do not seem to be available in the hospital. * Symptoms have resolved. * History of vertigo consistent with benign paroxysmal positional vertigo. No recurrence currently. Not using p.r.n. meclizine. * Prophylaxis. She has ambulated as far as 350 feet and she has no hemiparesis. Her risk for DVT is not high and her risk of bleed is elevated with clopidogrel and history of cerebral amyloid angiopathy. She will not receive any pharmacologic anticoagulation. She will have SCDs at night. Needs to follow-up with Cardiology Dr. Whyte after discharge for LINQ monitor. Will plan to send discharge summary to roadside mechanic Dr. Cruz. Plan: Cont Dr Lozoya's rehab treatment plan. Trial higher dose of amlodipine, 5mg qam. D/C tube feedings, as patient meeting calorie needs PO 07/12/17 11:23 Subjective: No new problems or C/O's No F/C/CP/SOB/N/V/D/C Objective: Vital Signs Temp Pulse Resp BP Pulse Ox 36.5 C 59 L 15 151/76 H 94 07/12/17 07:42 07/12/17 07:42 07/12/17 07:42 07/12/17 08:41 07/12/17 07:42 Laboratory Results 07/08/17 06:03 07/11/17 07/12/17 07/13/17 05:59 05:59 05:59 Intake Total 1348 920 240 Output Total 1999 1200 Balance -652 -280 240 Physical Exam - Physical Exam General Appearance: alert, no apparent distress Respiratory: lungs clear Cardiac/Chest: regular rate, rhythm Abdomen: normal bowel sounds, other (PEG site WNL) Skin: normal color, warm/dry Extremities: pedal edema Neuro/Psych: alert, normal mood/affect, oriented x 3, other (no gross changes) ICD10 Worksheet Patient Problems: Problems Problem Status Onset CVA (cerebral vascular accident) Acute Cerebral amyloid angiopathy Acute
[2017-07-12] MEDS: LOSARTAN POTASSIUM 50 MG TAB PO SCH (20:18)
[2017-07-13] MEDS: CHLORTHALIDONE 25 MG TAB PO SCH (08:11)
[2017-07-13] MEDS: ATORVASTATIN CALCIUM 40 MG TAB PO SCH (08:11)
[2017-07-13] MEDS: CLOPIDOGREL BISULFATE 75 MG TAB PO SCH (08:11)
--- NOTE | 2017-07-13 14:11 | SOAPPROG ---
SOAP Progress Note Assessment/Plan: Assessment: * Debility, status post cerebrovascular event on 06/30/2017. * Functional independence measure 88 on 07/09/2017. [place] balance inventory improved from 35/56 to 42/56; still moderate fall risk. Standby assistance with occasional contact guard assist for mobility. Decreased ability for new learning regarding using assistive device. ADLs overall at supervision level but needed minimal assistance for showering and shower transfer. * Ambulating > 150'. Cues and close SBA for ADLs due to poor balance. * Continue PT and OT to optimize mobility and ADLs. * Cognitive impairment, question chronicity. * Deficits to new learning, critical thinking, abstract reasoning, executive functioning, attention to detail. Will need 24 hr supervision for safety. * [place] cognitive assessment score improved to 20 04/12. Deficits more likely a subcortical and cortical including reduced speed of processing. * Continue Speech and Language Pathology. * Hypertension. Newly started on chlorthalidone. No adverse effects noted. * Blood pressure improved but not at target. Continue to monitor. Continue losartan and chlorthalidone; added amlodipine 2.5 mg QD on 07/08/2017. No gross benefit noted. * BMP on 07/08/2017 wnl; tolerating diuretic. * Insomnia. Allow use of OTC sleep aid any time through the night. * Discussed sleep hygiene 07/08/2017. * She does not want additional sleep medication. * Secondary stroke prophylaxis. Continue clopidogrel and atorvastatin. Monitor closely for any signs of intracranial hemorrhage with history of cerebral amyloid angiopathy. * Possible URI. Prescribed ascorbic acid PRN; she requested lozenges and these do not seem to be available in the hospital. * Symptoms have resolved. * History of vertigo consistent with benign paroxysmal positional vertigo. No recurrence currently. Not using p.r.n. meclizine. * Prophylaxis. She has ambulated as far as 350 feet and she has no hemiparesis. Her risk for DVT is not high and her risk of bleed is elevated with clopidogrel and history of cerebral amyloid angiopathy. She will not receive any pharmacologic anticoagulation. She will have SCDs at night. Needs to follow-up with Cardiology Dr. Whyte after discharge for LINQ monitor. Will plan to send discharge summary to software quality engineer Dr. Cruz. Plan: Cont Dr Lozoya's rehab treatment plan. Trial higher dose of amlodipine, 5mg qam. D/C tube feedings, as patient meeting calorie needs PO 07/13/17 14:06 Objective: Vital Signs Temp Pulse Resp BP Pulse Ox 36.6 C 64 17 138/80 H 97 07/13/17 08:00 07/13/17 08:00 07/13/17 08:00 07/13/17 08:12 07/13/17 08:00 Laboratory Results 07/08/17 06:03 07/12/17 07/13/17 07/14/17 05:59 05:59 05:59 Intake Total 920 1740 Output Total 1200 1750 Balance -280 -10 Physical Exam - Physical Exam General Appearance: alert, no apparent distress Neck: supple Respiratory: lungs clear Cardiac/Chest: regular rate, rhythm Skin: normal color, warm/dry Neuro/Psych: alert, normal mood/affect, abnormal gait, motor weakness, cognition abnormalities, other (no acute changes) ICD10 Worksheet Patient Problems: Problems Problem Status Onset CVA (cerebral vascular accident) Acute Cerebral amyloid angiopathy Acute
[2017-07-13] MEDS: LOSARTAN POTASSIUM 50 MG TAB PO SCH (19:49)
[2017-07-13] MEDS: ASCORBIC ACID 500 MG TAB PO PRN (19:53)
[2017-07-14] MEDS: ATORVASTATIN CALCIUM 40 MG TAB PO SCH (08:13)
[2017-07-14] MEDS: CLOPIDOGREL BISULFATE 75 MG TAB PO SCH (08:14)
[2017-07-14] MEDS: CHLORTHALIDONE 25 MG TAB PO SCH (08:20)
[2017-07-14] MEDS: ASCORBIC ACID 500 MG TAB PO PRN ×2 (08:27→20:13)
--- NOTE | 2017-07-14 13:41 | SOAPPROG ---
SOAP Progress Note Assessment/Plan: Assessment: * Debility, status post cerebrovascular event on 06/30/2017. * Successfully made Independent in room 07/13. Decreased ability for new learning regarding using assistive device. ADLs overall at supervision level but needed minimal assistance for showering and shower transfer. * Ambulating > 150'. Cues and close SBA for ADLs due to poor balance. * Continue PT and OT to optimize mobility and ADLs. * Cognitive impairment, question chronicity. * Deficits to new learning, critical thinking, abstract reasoning, executive functioning, attention to detail. Will need 24 hr supervision for safety. * [place] cognitive assessment score improved to 29/30. Deficits more likely a subcortical and cortical including reduced speed of processing. * Continue Speech and Language Pathology. * Hypertension. Better control on amlodipine and chlorthalidone. No adverse effects noted. * Blood pressure 131/85. Continue to monitor. Continue losartan, chlorthalidone , and amlodipine. * BMP on 07/08/2017 wnl; tolerating diuretic. * Insomnia. Allow use of OTC sleep aid any time through the night. * Discussed sleep hygiene 07/08/2017. * She does not want additional sleep medication. * Secondary stroke prophylaxis. Continue clopidogrel and atorvastatin. Monitor closely for any signs of intracranial hemorrhage with history of cerebral amyloid angiopathy. * Possible URI. Prescribed ascorbic acid PRN; she requested lozenges and these do not seem to be available in the hospital. * Symptoms have resolved. * History of vertigo consistent with benign paroxysmal positional vertigo. No recurrence currently. Not using p.r.n. meclizine. * Prophylaxis. She has ambulated as far as 350 feet and she has no hemiparesis. Her risk for DVT is not high and her risk of bleed is elevated with clopidogrel and history of cerebral amyloid angiopathy. She will not receive any pharmacologic anticoagulation. She will have SCDs at night. Needs to follow-up with Cardiology Dr. Whyte after discharge for LINQ monitor. Will plan to send discharge summary to embedded engineer Dr. Cruz. Plan: Cont Dr Lozoya's rehab treatment plan. Cont higher dose of amlodipine, 5mg qam. D/C tube feedings. 07/14/17 13:41 Subjective: In good spirits Appropriately questioning diagnosis and prognosis No F/C/CP/SOB/N/V/D/C Objective: Vital Signs Temp Pulse Resp BP Pulse Ox 36.4 C 74 18 131/85 H 96 07/14/17 08:00 07/14/17 08:00 07/14/17 08:00 07/14/17 08:20 07/14/17 08:00 Laboratory Results 07/08/17 06:03 07/13/17 07/14/17 07/15/17 05:59 05:59 05:59 Intake Total 1740 500 Output Total 1750 1050 Balance -10 -550 Physical Exam - Physical Exam General Appearance: alert, no apparent distress Neck: supple Respiratory: lungs clear Cardiac/Chest: regular rate, rhythm Skin: normal color, warm/dry Neuro/Psych: alert, normal mood/affect, oriented x 3, other (no acute changes) ICD10 Worksheet Patient Problems: Problems Problem Status Onset CVA (cerebral vascular accident) Acute Cerebral amyloid angiopathy Acute
[2017-07-14] MEDS: LOSARTAN POTASSIUM 50 MG TAB PO SCH (20:10)
[2017-07-14 21:11] VITALS: RESP 16; TEMP 97.7
[2017-07-15 07:53] VITALS: BP 147/75; PULSE 78; O2SAT 93
[2017-07-15] MEDS: ATORVASTATIN CALCIUM 40 MG TAB PO SCH (08:30)
[2017-07-15] MEDS: CHLORTHALIDONE 25 MG TAB PO SCH (08:30)
[2017-07-15] MEDS: ASCORBIC ACID 500 MG TAB PO PRN (08:31)
[2017-07-15] MEDS: CLOPIDOGREL BISULFATE 75 MG TAB PO SCH (08:31)
--- NOTE | 2017-07-15 12:51 | SOAPPROG ---
SOAP Progress Note Assessment/Plan: Assessment: * Debility, status post cerebrovascular event on 06/30/2017. * Functional independence measure 93 on 07/09/2017; improved to 106 as of 2017. Has been advanced to independent in her room from 7:00 a.m. to 7:00 p.m.. Negotiated 12 steps with 1 rail and standby assist. Modified independent for bathing and dressing supervision for a cooking task. Still with occasional loss of balance while walking especially with distraction. * Continue PT and OT to optimize mobility and ADLs. * Cognitive impairment, question chronicity. * Deficits to new learning, critical thinking, abstract reasoning, executive functioning, attention to detail. Will need 24 hr supervision for safety. * [place] cognitive assessment score improved to 29/30. Otherwise no improvements in cognition noted. Deficits more likely subcortical than cortical including reduced speed of processing. * Continue Speech and Language Pathology. * Hypertension. Newly started on chlorthalidone. No adverse effects noted. * Blood pressure improved but not at target. Continue to monitor. Continue losartan and chlorthalidone; added amlodipine 2.5 mg QD on 07/08/2017; increased to 5 mg on 07/12/2017. * Repeat BMP on 07/08/2017 wnl; tolerating diuretic. * Insomnia. Allow use of OTC sleep aid any time through the night. * Discussed sleep hygiene 07/08/2017. * She does not want additional sleep medication. * Secondary stroke prophylaxis. Continue clopidogrel and atorvastatin. Monitor closely for any signs of intracranial hemorrhage with history of cerebral amyloid angiopathy. * Possible URI. Prescribed a ascorbic acid PRN; she requested lozenges and these do not seem to be available in the hospital. * Symptoms have resolved. * History of vertigo consistent with benign paroxysmal positional vertigo. No recurrence currently. Not using p.r.n. meclizine. * Prophylaxis. She has ambulated as far as 350 feet and she has no hemiparesis. Her risk for DVT is not high and her risk of bleed is elevated with clopidogrel and history of cerebral amyloid angiopathy. She will not receive any pharmacologic anticoagulation. She will have SCDs at night. Needs to follow-up with Cardiology Dr. Whyte after discharge for LINQ monitor. Attended staffing, 15 min. Discussed with case management, pharmacy, dietitian , PT, OT, BALLING MACHINE OPERATOR. Continue to recommend 24 hr supervision. Patient and son opted for discharge to SNF to continue Medicare rehabilitation with subsequent possible discharge home, but currently too high functioning for this option. Encouraging brief respite stay at [facility] however patient intends to be discharged to home. In the meantime construction work is ongoing at her condominium to repair broken toilet and water damage from her fall. Discharge date set for 07/16. Will plan to send discharge summary to ethnic studies professor Dr. Cruz and PCP Dr. Hughes. 07/15/17 13:58 Subjective: This patient was plan for discharge today to [facility] but there is no bed available. Per social work faculty member she is very specific as to where she would go and also specifically wants to be sure that she gets therapy 7 days a week. She is not considered safe for home discharge and home repair work is still underway regarding toilet that broke when she fell on it and floating that happened subsequently. Asks about another test of kidney function.l Objective: Vital Signs Temp Pulse Resp BP Pulse Ox 36.5 C 78 16 147/75 H 93 07/15/17 07:51 07/15/17 07:51 07/15/17 07:51 07/15/17 08:30 07/15/17 07:51 Laboratory Results 07/08/17 06:03 07/14/17 07/15/17 07/16/17 05:59 05:59 05:59 Intake Total 500 Output Total 1050 900 Balance -550 -900 - Time Spent With Patient Time Spent With Patient: Greater than 35 min floor time today including more than 50% of time in coordination of care during staffing meeting, and counseling patient. Physical Exam - Physical Exam General Appearance: WD/WN, alert, no apparent distress Respiratory: No respiratory distress, No accessory muscle use Skin: normal color, warm/dry Neuro/Psych: no motor/sensory deficits, alert, normal mood/affect, oriented x 3 ICD10 Worksheet Patient Problems: Problems Problem Status Onset CVA (cerebral vascular accident) Acute Cerebral amyloid angiopathy Acute
--- NOTE | 2017-07-16 12:46 | PDOREHIP ---
Admission [facility] - Admission - 3 Day Assessment Period Admission Date/Day 1: 07/03/17 Day 2: 07/04/17 Day 3: 07/05/17 Discharge [facility] - Discharge - 3 Day Assessment Period 2 Days Prior to Anticipated Discharge Date: 07/13/17 1 Day Prior to Anticipated Discharge Date: 07/14/17 Anticipated Discharge Date: 07/15/17 - Discharge Skin Conditions Unhealed Pressure Ulcer (1 or more/Stage 1 or >)-Discharge: 0. No
== END 2017-07-15 16:35 | disposition home or self-care (01) | DRG 57 ==
LOC: BREH 07-03 11:46
PROVIDERS: ADMIT Internal Medicine; ATTEND Internal Medicine
PROC: F0636ZZ Communicative/Cognitive Integration Skills Treatment of Neurological System - Whole Body (ICD-10-PCS; principal; 2017-07-03)
PROC: F08Z7ZZ Vocational Activities and Functional Community or Work Reintegration Skills Treatment (ICD-10-PCS; principal; 2017-07-03)
PROC: F07M3ZZ Motor Function Treatment of Musculoskeletal System - Whole Body (ICD-10-PCS; principal; 2017-07-03)
DX: I69.898 Other sequelae of other cerebrovascular disease (principal); R53.81 Other malaise; I69.319 Unspecified symptoms and signs involving cognitive functions following cerebral infarction; G62.9 Polyneuropathy, unspecified; I10 Essential (primary) hypertension; H81.10 Benign paroxysmal vertigo, unspecified ear; G47.00 Insomnia, unspecified; J06.9 Acute upper respiratory infection, unspecified
CPT/HCPCS: 92507-GN; 92522-GN; 97110-GP; 97112-GP; 97116-GP; 97162-GP; 97165-GO; 97530-GO; 97530-GP; 97532-GO; 97535-GO; 99366-GO; G0008